=== PATIENT | female | born 1955 | race Caucasian/White ===

== ENCOUNTER → 2017-07-12 | Outpatient (CLI) | payer BC ==
--- NOTE | 2017-07-12 10:52 | US ---
EXAMINATION TYPE: US abdomen complete DATE OF EXAM: 07/12/2017 COMPARISON: None CLINICAL HISTORY: 62 year-old female right Upper Quadrant Pain R10.11. RUQ pain x 3 days, history of cholecystectomy, patient not NPO: ate 4 hours prior to exam. TECHNIQUE: Multiple sonographic images of the abdomen are obtained. FINDINGS: Liver Length: 12.9 cm CBD: 0.5 cm Spleen: 10.6 cm Right Kidney: 9.0 x 4.7 x 5.6 cm Left Kidney: 10.1 x 5.6 x 5.1 cm Pancreas: visualized portions wnl, tail obscured by overlying midline bowel gas Liver: 0.8cm echogenic focus posterior right lobe could represent an old calcified granuloma. Otherw ise, normal size and homogeneous echotexture. Gallbladder: surgically absent Evidence for sonographic Conrad's sign: yes CBD: wnl Spleen: visualized portion wnl, limited by rib shadowing Right Kidney: no hydronephrosis Left Kidney: No hydronephrosis. There is a 3.1 cm midpole simple cyst. Upper IVC: wnl Abd Aorta: Atherosclerotic irregularity. No aneurysm seen. IMPRESSION: 1. Status post cholecystectomy. The chemical equipment repairer reports pain while scanning the gallbladder fossa. Th is likely represents referred pain. 2. The bile duct measures approximately 5 mm which is not abnormally dilated.
== END | disposition home or self-care (01) ==
LOC: RADUSWWP 09:37
PROVIDERS: ATTEND Family Medicine
DX: R10.11 Right upper quadrant pain (principal); Z90.49 Acquired absence of other specified parts of digestive tract
CPT/HCPCS: 76700

== ENCOUNTER 2018-12-17 09:19 | Emergency (ER) | payer BC, OTHER ==
[2018-12-17 09:37] VITALS: RESP 18
[2018-12-17] MEDS ORDERED: SODIUM CHLORIDE 0.9% 1,000 ML IV STA (09:38)
--- NOTE | 2018-12-17 09:54 | ED ---
Abdominal Pain HPI - General Chief Complaint: Abdominal Pain Stated Complaint: left side pain Time Seen by Provider: 12/17/18 09:38 Source: patient, RN notes reviewed Mode of arrival: ambulatory Limitations: no limitations - History of Present Illness Initial Comments: 63-year-old female presents emergency Department with chief complaint of abdominal pain. Patient states started last couple days and left upper quadrant. Patient does have a history of diverticulitis and states pain seems similar. Patient admits that she is currently taking Augmentin though that she recently started for acute sinusitis. Patient reports no fever or chills. She's had slight loose stools but no melena or hematochezia. Denies any vomiting slight nausea. Denies chest pain, shortness breath, flank pain, dysuria or noted hematuria - Related Data Home Medications Medication Instructions Recorded Confirmed Amoxic-Pot Clav 875-125Mg 1 tab PO BID 12/17/18 12/17/18 [Augmentin 875-125] Fluticasone Nasal [place] [Flonase 2 spray EA NOSTRIL DAILY 12/17/18 12/17/18 Nasal [place]] Previous Rx's Medication Instructions Recorded Ciprofloxacin HCl [Cipro] 500 mg PO Q12HR #20 tablet 12/17/18 metroNIDAZOLE [Flagyl] 500 mg PO TID #30 tab 12/17/18 Allergies Allergy/AdvReac Type Severity Reaction Status Date / Time acetaminophen [From Vicodin] Allergy Rash/Hives Verified 12/17/18 11:18 hydrocodone bitartrate Allergy Rash/Hives Verified 12/17/18 11:18 [From Vicodin] latex Allergy Rash/Hives Verified 12/17/18 11:18 codeine AdvReac Nausea Verified 12/17/18 11:18 Review of Systems ROS Statement: Those systems with pertinent positive or pertinent negative responses have been documented in the HPI. ROS Other: All systems not noted in ROS Statement are negative. Past Medical History Past Medical History: No Reported History Additional Past Medical History / Comment(s): Diverticulitis History of Any Multi-Drug Resistant Organisms: None Reported Past Surgical History: Cholecystectomy, Orthopedic Surgery, Tonsillectomy Additional Past Surgical History / Comment(s): d&c, LILLIANA CARPAL TUNNEL Past Anesthesia/Blood Transfusion Reactions: Postoperative Nausea & Vomiting (PONV) Past Psychological History: No Psychological Hx Reported Smoking Status: Current every day smoker Past Alcohol Use History: None Reported Past Drug Use History: None Reported - Past Family History Mother Family Medical History: Cancer Additional Family Medical History / Comment(s): COLON Brother(s) Family Medical History: Cancer Additional Family Medical History / Comment(s): ESOPHAGEAL General Exam Limitations: no limitations General appearance: alert, in no apparent distress Head exam: Present: atraumatic, normocephalic, normal inspection Eye exam: Present: normal appearance, PERRL, EOMI. Absent: scleral icterus, conjunctival injection, periorbital swelling ENT exam: Present: normal exam, normal oropharynx, mucous membranes moist Neck exam: Present: normal inspection, full ROM. Absent: tenderness, meningismus, lymphadenopathy Respiratory exam: Present: normal lung sounds bilaterally. Absent: respiratory distress, wheezes, rales, rhonchi, stridor Cardiovascular Exam: Present: regular rate, normal rhythm, normal heart sounds. Absent: systolic murmur, diastolic murmur, rubs, gallop, clicks GI/Abdominal exam: Present: soft, tenderness (Tenderness to the left upper quadrant), normal bowel sounds. Absent: distended, guarding, rebound, rigid Back exam: Absent: CVA tenderness (R), CVA tenderness (L) Skin exam: Present: warm, dry, intact, normal color. Absent: rash Course Vital Signs 12/17/18 09:35 Temperature 98.4 F Pulse Rate 99 Respiratory 18 Rate Blood Pressure 165/102 O2 Sat by Pulse 98 Oximetry Medical Decision Making - Medical Decision Making 63-year-old female presented emergency from for abdominal discomfort. Patient does have a history of diverticulitis and CT was obtained showing mild uncomplicated diverticulitis. There is no perforation no abscess. Patient does have mild leukocytosis of 14,000 with normal vitals afebrile. Patient is t olerating oral intake. I did offer patient admission for IV antibiotics but she prefers to try at home and ask including Cipro and Flagyl as she currently has been on Augmentin. Patient will follow-up with her PCP and return for any worsening symptoms. - Lab Data Result diagrams: 12/17/18 10:23 12/17/18 10:23 Lab Results 12/17/18 12/17/18 12/17/18 Range/Units 10:23 10:23 10:23 WBC 14.0 H (3.8-10.6) k/uL RBC 5.06 (3.80-5.40) m/uL Hgb 16.3 H (11.4-16.0) gm/dL Hct 47.7 H (34.0-46.0) % MCV 94.4 (80.0-100.0) fL MCH 32.3 (25.0-35.0) pg MCHC 34.2 (31.0-37.0) g/dL RDW 15.0 (11.5-15.5) % Plt Count 258 (150-450) k/uL Neutrophils % 83 % Lymphocytes % 8 % Monocytes % 7 % Eosinophils % 1 % Basophils % 0 % Neutrophils # 11.6 H (1.3-7.7) k/uL Lymphocytes # 1.1 (1.0-4.8) k/uL Monocytes # 1.0 (0-1.0) k/uL Eosinophils # 0.2 (0-0.7) k/uL Basophils # 0.0 (0-0.2) k/uL Sodium 136 L (137-145) mmol/L Potassium 4.1 (3.5-5.1) mmol/L Chloride 102 (98-107) mmol/L Carbon Dioxide 24 (22-30) mmol/L Anion Gap 10 mmol/L BUN 14 (7-17) mg/dL Creatinine 0.78 (0.52-1.04) mg/dL Est GFR (CKD-EPI)AfAm >90 (>60 ml/min/1.73 sqM) Est GFR (CKD-EPI)NonAf 81 (>60 ml/min/1.73 sqM) Glucose 92 (74-99) mg/dL Plasma Lactic Acid Shad 0.8 (0.7-2.0) mmol/L Calcium 10.1 (8.4-10.2) mg/dL Total Bilirubin 1.1 (0.2-1.3) mg/dL AST 22 (14-36) U/L ALT 23 (9-52) U/L Alkaline Phosphatase 60 (38-126) U/L Total Protein 7.7 (6.3-8.2) g/dL Albumin 4.6 (3.5-5.0) g/dL Amylase 46 (30-110) U/L Lipase 63 (23-300) U/L Urine Color Urine Appearance (Clear) Urine pH (5.0-8.0) Ur Specific [place] (1.001-1.035) Urine Protein (Negative) Urine Glucose (UA) (Negative) Urine Ketones (Negative) Urine Blood (Negative) Urine Nitrite (Negative) Urine Bilirubin (Negative) Urine Urobilinogen (<2.0) mg/dL Ur Leukocyte Esterase (Negative) Urine RBC (0-5) /hpf Urine WBC (0-5) /hpf Ur Squamous Epith Cells (0-4) /hpf Urine Mucus (None) /hpf 12/17/18 Range/Units 10:23 WBC (3.8-10.6) k/uL RBC (3.80-5.40) m/uL Hgb (11.4-16.0) gm/dL Hct (34.0-46.0) % MCV (80.0-100.0) fL MCH (25.0-35.0) pg MCHC (31.0-37.0) g/dL RDW (11.5-15.5) % Plt Count (150-450) k/uL Neutrophils % % Lymphocytes % % Monocytes % % Eosinophils % % Basophils % % Neutrophils # (1.3-7.7) k/uL Lymphocytes # (1.0-4.8) k/uL Monocytes # (0-1.0) k/uL Eosinophils # (0-0.7) k/uL Basophils # (0-0.2) k/uL Sodium (137-145) mmol/L Potassium (3.5-5.1) mmol/L Chloride (98-107) mmol/L Carbon Dioxide (22-30) mmol/L Anion Gap mmol/L BUN (7-17) mg/dL Creatinine (0.52-1.04) mg/dL Est GFR (CKD-EPI)AfAm (>60 ml/min/1.73 sqM) Est GFR (CKD-EPI)NonAf (>60 ml/min/1.73 sqM) Glucose (74-99) mg/dL Plasma Lactic Acid Shad (0.7-2.0) mmol/L Calcium (8.4-10.2) mg/dL Total Bilirubin (0.2-1.3) mg/dL AST (14-36) U/L ALT (9-52) U/L Alkaline Phosphatase (38-126) U/L Total Protein (6.3-8.2) g/dL Albumin (3.5-5.0) g/dL Amylase (30-110) U/L Lipase (23-300) U/L Urine Color Light Yellow Urine Appearance Clear (Clear) Urine pH 6.5 (5.0-8.0) Ur Specific [place] 1.007 (1.001-1.035) Urine Protein Negative (Negative) Urine Glucose (UA) Negative (Negative) Urine Ketones Trace H (Negative) Urine Blood Trace H (Negative) Urine Nitrite Negative (Negative) Urine Bilirubin Negative (Negative) Urine Urobilinogen <2.0 (<2.0) mg/dL Ur Leukocyte Esterase Negative (Negative) Urine RBC 2 (0-5) /hpf Urine WBC 1 (0-5) /hpf Ur Squamous Epith Cells 1 (0-4) /hpf Urine Mucus Rare H (None) /hpf Disposition Clinical Impression: Diverticulitis Disposition: HOME SELF-CARE Condition: Stable Instructions (If sedation given, give patient instructions): Diverticulitis (ED), Diverticulitis Diet (ED) Additional Instructions: Please return to the Emergency Department if symptoms worsen or any other concerns. Prescriptions: Ciprofloxacin HCl [Cipro] 500 mg PO Q12HR #20 tablet metroNIDAZOLE [Flagyl] 500 mg PO TID #30 tab Is patient prescribed a controlled substance at d/c from ED?: No Referrals: Jurgen Ware DO [Primary Care Provider] - 1-2 days Time of Disposition: 11:30
[2018-12-17 10:36] LABS: Basophils % (A) 0 %; Eosinophils # (A) 0.2 k/uL (0-0.7); Eosinophils % (A) 1 %; HCT 47.7 % (34.0-46.0); HGB 16.3 gm/dL (11.4-16.0); Lymphocytes # (A) 1.1 k/uL (1.0-4.8); Lymphocytes % (A) 8 %; MCH 32.3 pg (25.0-35.0); MCHC 34.2 g/dL (31.0-37.0); MCV 94.4 fL (80.0-100.0); Mean Platelet Volume 7.4; Monocytes % (A) 7 %; Neutrophils # (A) 11.6 k/uL (1.3-7.7); Neutrophils % (A) 83 %; Platelet Count 258 k/uL (150-450); RBC 5.06 m/uL (3.80-5.40)
[2018-12-17 10:46] LABS: ALT 23 U/L (9-52); AST 22 U/L (14-36); Albumin 4.6 g/dL (3.5-5.0); Alkaline Phosphatase 60 U/L (38-126); Amylase 46 U/L (30-110); Anion Gap 10 mmol/L; Blood Urea Nitrogen 14 mg/dL (7-17); Calcium 10.1 mg/dL (8.4-10.2); Carbon Dioxide 24 mmol/L (22-30); Chloride 102 mmol/L (98-107); Glucose 92 mg/dL (74-99); Lipase 63 U/L (23-300); Potassium 4.1 mmol/L (3.5-5.1); Sodium 136 mmol/L (137-145); Total Bilirubin 1.1 mg/dL (0.2-1.3); Total Protein 7.7 g/dL (6.3-8.2)
[2018-12-17 10:48] LABS: Appearance,Urine Clear (Clear); Bilirubin,Urine Negative (Negative); Blood,Urine Trace (Negative); Color,Urine Light Yellow; Glucose,Urine (UA) Negative (Negative); Ketones,Urine Trace (Negative); Leukocyte Esterase,Urine Negative (Negative); Mucus,Urine Rare /hpf; Nitrite,Urine Negative (Negative); PH, Urine 6.5 (5.0-8.0); Protein,Urine Negative (Negative); RBC,Urine 2 /hpf (0-5); Specific Gravity,Urine 1.007 (1.001-1.035); Squamous Epithelial Cell,Urine 1 /hpf (0-4); Urobilinogen,Urine <2.0 mg/dL (<2.0)
--- NOTE | 2018-12-17 11:05 | CT ---
EXAMINATION TYPE: CT abdomen pelvis w con DATE OF EXAM: 12/17/2018 COMPARISON: 07/23/2013 HISTORY: Left flank pain CT DLP: 572.8 mGycm CONTRAST: CT scan of the abdomen and pelvis is performed without Oral Contrast and with IV Contrast, patient in jected with 100 mL of Isovue 300. FINDINGS: LUNG BASES-: No visible nodule. No infiltrate. LIVER/GB: The gallbladder surgically absent. No space occupying hepatic lesion. Biliary tree is of normal caliber. PANCREAS: No inflammation. No distinct mass. SPLEEN: No splenic enlargement. No lesion seen. ADRENALS: No nodule. No thickening. KIDNEYS/BLADDER: No hydronephrosis. No nephrolithiasis. Simple renal cysts redemonstrated. Urinary bladder grossly unremarkable. BOWEL: There is wall thickening with inflammatory change involving the proximal to mid descending col on as well as a small amount of adjacent fluid compatible with acute diverticulitis. No evidence for perforation or abscess at this time. Mild small bowel ileus suggested. Sigmoid diverticulosis without additional diverticulitis. Nonvisualization of the appendix at this time. GENITAL ORGANS: No gross abnormality. LYMPH NODES: No greater than 1cm abdominal or pelvic lymph nodes are appreciated. AORTA: No significant abnormality. OSSEOUS STRUCTURES: No significant abnormality is seen. OTHER: No significant additional abnormality is seen. IMPRESSION: 1. Uncomplicated acute diverticulitis of the proximal to mid descending colon.
[2018-12-17 11:43] VITALS: BP 147/84; PULSE 78; TEMP 98.9
== END 2018-12-17 11:47 | disposition home or self-care (01) ==
LOC: EC 09:19
DX: K57.32 Diverticulitis of large intestine without perforation or abscess without bleeding (principal); D72.829 Elevated white blood cell count, unspecified; J01.90 Acute sinusitis, unspecified; F17.200 Nicotine dependence, unspecified, uncomplicated; Z88.5 Allergy status to narcotic agent; Z88.6 Allergy status to analgesic agent; Z91.040 Latex allergy status; Z79.51 Long term (current) use of inhaled steroids; Z90.49 Acquired absence of other specified parts of digestive tract; Z80.0 Family history of malignant neoplasm of digestive organs
CPT/HCPCS: 36415; 80053; 82150; 83605; 83690; 85025; 81001; 87040; 74177; 99284; 96360; Q9967

== ENCOUNTER → 2019-04-28 | Outpatient (CLI) | payer MEDICARE ==
--- NOTE | 2019-05-02 09:17 | MM ---
Reason for exam: screening (asymptomatic). Last mammogram was performed 4 years and 9 months ago. History: Patient is postmenopausal and is nulliparous. Physical Findings: A clinical breast exam by your physician is recommended on an annual basis and results should be correlated with mammographic findings. MG 3D Screening Mammo W/Cad Bilateral CC and MLO view(s) were taken. Prior study comparison: July 17, 2014, bilateral MG screening mammo w CAD. The breast tissue is heterogeneously dense. This may lower the sensitivity of mammography. Left lateral asymmetry 5.5cm from nipple also has a possible superior correlate. Central right breast asymmetry 3cm from nipple has a possibly superior correlate on MLO view. ASSESSMENT: Incomplete: need additional imaging evaluation, BI-RAD 0 RECOMMENDATION: Special view mammogram of both breasts. If lesion persists on supplemental views, image directed ultrasound is recommended. [facility] will attempt to contact patient to return for supplemental views and ultrasound if indicated.
== END | disposition home or self-care (01) ==
LOC: RADMAMWWP 09:46
PROVIDERS: ATTEND Family Medicine
DX: Z12.31 Encounter for screening mammogram for malignant neoplasm of breast (principal)
CPT/HCPCS: 77063; 77067

== ENCOUNTER → 2019-05-04 | Outpatient (CLI) | payer MEDICARE ==
--- NOTE | 2019-05-04 10:12 | BD ---
EXAMINATION TYPE: Axial Bone Density DATE OF EXAM: 05/04/2019 COMPARISON: NONE CLINICAL HISTORY: 64 YR OLD FEMALE....ICD-10 CODE: Z78.0 POST JOVANNY , R29.890 LOSS OF HT Height: 64.6 Weight: 135 FRAX RISK QUESTIONS: Current Tobacco Use: YES RISK FACTORS HISTORY OF: Diet low in dairy products/other sources of calcium: YES Postmenopausal woman: YES AT 51 YRS OLD Lost more than 2 inches in height since high school: YES MEDICATIONS: Thyroid Medications: YES, SYNTHROID, FOR 3 MOS Additional Medications: TUMS, VIT D, Additional History: NOTHING ADDITIONAL TO ADD HERE EXAM MEASUREMENTS: Bone mineral densitometry was performed using the [facility]. Bone mineral density as measured about the Lumbar spine is: ----- L1-L4(G/cm2): 1.236 T Score Values are as follows: ----- L1: -1.3 ----- L2: -0.9 ----- L3: 1.7 ----- L4: 1.7 ----- L1-L4: 0.5 Bone mineral density FIRST DEXA AT [facility] Bone mineral density about the R hip (g/cm2): 0.832 Bone mineral density about the L hip (g/cm2): 0.836 T Score values are as follows: -----R Neck: -1.3 -----L Neck: -1.4 -----R Total: -1.4 -----L Total: -1.4 Bone mineral density FIRST DEXA AT [facility] FRAX%s: THERE IS A 8.3% CHANCE FOR A MAJOR OSTEOPOROTIC FX AND A 1.4% FOR HIP.....PROBABILITY FOR F X IN 10 YRS TIME IMPRESSION: Osteoporosis (T Score less than -2.5). There is increased fracture risk and therapy is usually indicated based on age. Re-Screen 1-2 years. NOTE: T-SCORE=SD OF THE YOUNG ADULT MEAN.
== END | disposition home or self-care (01) ==
LOC: RADBDWWP 07:41
PROVIDERS: ATTEND Family Medicine
DX: Z13.820 Encounter for screening for osteoporosis (principal); M81.0 Age-related osteoporosis without current pathological fracture; Z78.0 Asymptomatic menopausal state
CPT/HCPCS: 77080

== ENCOUNTER → 2019-05-11 | Outpatient (CLI) | payer MEDICARE ==
--- NOTE | 2019-05-11 11:50 | MM ---
Reason for exam: additional evaluation requested from abnormal screening. Last mammogram was performed less than 1 month ago. History: Patient is postmenopausal and is nulliparous. Physical Findings: Nurse did not find any significant physical abnormalities on exam. MG 3D Work Up W/Cad LILLIANA Bilateral spot compression CC and LM view(s) were taken. Prior study comparison: April 28, 2019, bilateral MG 3d screening mammo w/cad. July 17, 2014, bilateral MG screening mammo w CAD. The breast tissue is heterogeneously dense. This may lower the sensitivity of mammography. No distinct lesion persists. These results were verbally communicated with the patient and result sheet given to the patient on 05/11/19. ASSESSMENT: Negative, BI-RAD 1 RECOMMENDATION: Return to routine screening mammogram schedule for both breasts.
== END | disposition home or self-care (01) ==
LOC: RADMAMWWP 10:03
PROVIDERS: ATTEND Family Medicine
DX: R92.8 Other abnormal and inconclusive findings on diagnostic imaging of breast (principal)
CPT/HCPCS: 77066; G0279; 77062

== ENCOUNTER → 2021-02-18 | Outpatient (CLI) | payer MEDICARE ==
--- NOTE | 2021-02-18 11:23 | US ---
EXAMINATION TYPE: US thyroid st tissue head/neck DATE OF EXAM: 02/18/2021 COMPARISON: NONE CLINICAL HISTORY: E03.9 Hypothyroidism. Patient on thyroid meds GLAND SIZE: Right Lobe: 5.2 x 2.2 x 2.1 cm, enlarged Overall Parenchyma: heterogenous Left Lobe: 5.3 x 1.7 x 2.0 cm Overall Parenchyma: heterogeneous Isthmus Thickness: 0.2 cm, enlarged NODULES RIGHT: # of nodules measured on right: 0 LEFT: # of nodules measured on left: 0 ISTHMUS: # of nodules measured in the isthmus: 0 Bilateral neck scanned, no evidence of lymphadenopathy. IMPRESSION: Heterogeneous thyroid without focal nodule seen. 2017 ACR TI-RADS LEVEL: TR-RADS 1 - BENIGN: No FNA *Highest TI-RADS level nodule reported
== END | disposition home or self-care (01) ==
LOC: RADUSWWP 10:40
PROVIDERS: ATTEND Family Medicine
DX: E03.9 Hypothyroidism, unspecified (principal)
CPT/HCPCS: 76536

== ENCOUNTER → 2021-03-06 | Outpatient (CLI) | payer MEDICARE ==
--- NOTE | 2021-03-10 15:16 | MM ---
Reason for exam: screening (asymptomatic). Last mammogram was performed 1 year and 10 months ago. History: Patient is postmenopausal and is nulliparous. Physical Findings: A clinical breast exam by your physician is recommended on an annual basis and results should be correlated with mammographic findings. MG 3D Screening Mammo W/Cad Bilateral CC and MLO view(s) were taken. Prior study comparison: May 11, 2019, bilateral MG 3d work up w/cad LILLIANA. April 28, 2019, bilateral MG 3d screening mammo w/cad. The breast tissue is heterogeneously dense. This may lower the sensitivity of mammography. No significant changes when compared with prior studies. ASSESSMENT: Negative, BI-RAD 1 RECOMMENDATION: Routine screening mammogram of both breasts in 1 year.
== END | disposition home or self-care (01) ==
LOC: RADMAMWWP 08:07
PROVIDERS: ATTEND Family Medicine
DX: Z12.31 Encounter for screening mammogram for malignant neoplasm of breast (principal)
CPT/HCPCS: 77063; 77067

== ENCOUNTER → 2021-09-24 | Outpatient (CLI) | payer MEDICARE ==
--- NOTE | 2021-09-24 10:38 | US ---
EXAMINATION TYPE: US thyroid st tissue head/neck DATE OF EXAM: 09/24/2021 COMPARISON: NONE CLINICAL HISTORY: E03.9 Hypothyroidism, unspecified. f/u exam, known hypothyroidism, on meds, no symp toms GLAND SIZE: Right Lobe: 5.5 x 1.8 x 2.6 cm Overall Parenchyma: heterogenous Left Lobe: 4.9 x 1.3 x 2.0 cm Overall Parenchyma: heterogeneous Isthmus Thickness: 0.3 cm NODULES RIGHT: # of nodules measured on right: 0 LEFT: # of nodules measured on left: 0 ISTHMUS: # of nodules measured in the isthmus: 0 Bilateral neck scanned, no evidence of lymphadenopathy. IMPRESSION: Thyroidomegaly and glandular heterogeneity. Otherwise unremarkable study. 2017 ACR TI-RADS LEVEL: *Highest TI-RADS level nodule reported
== END | disposition home or self-care (01) ==
LOC: RADUSWWP 10:06
PROVIDERS: ATTEND Family Medicine
DX: E01.0 Iodine-deficiency related diffuse (endemic) goiter (principal)
CPT/HCPCS: 76536

== ENCOUNTER 2022-02-14 08:14 | Emergency (ER) | payer MEDICARE ==
[2022-02-14] MEDS ORDERED: SODIUM CHLORIDE 0.9% 500 ML 500 ML IV STA (08:29)
[2022-02-14] MEDS ORDERED: PANTOPRAZOLE 40 MG/10 ML VIAL IVP STA (08:29)
[2022-02-14] MEDS ORDERED: fentaNYL (PF) 50 MCG/ML 2 ML AMP IVP STA (08:30)
--- NOTE | 2022-02-14 08:43 | ED ---
General Adult HPI - General Chief complaint: Abdominal Pain Stated complaint: left side abd pain Time Seen by Provider: 02/14/22 08:20 Source: patient, RN notes reviewed, old records reviewed Mode of arrival: ambulatory Limitations: no limitations - History of Present Illness Initial comments: 66-year-old female presents ambulatory to the emergency room with complaints of left upper quadrant abdominal pain that started yesterday while riding lawnmower . She has a history of diverticulitis and states this feels the same. Her last episode was in 2017. She states that she does not have a normal bowel movements sometimes constipation sometimes diarrhea. She did have some nausea and no vomiting. She denies any fevers, chest pain or shortness of breath. She is a previous pack-a-day smoker quit 9 months ago. History of hypothyroidism, hypercholesterolemia, no other medical history. -: days(s) (1) Location: abdomen Radiation: non-radiation Severity scale (1-10): 8 Quality: constant Consistency: constant Associated Symptoms: nausea/vomiting - Related Data Home Medications Medication Instructions Recorded Confirmed Amoxic-Pot Clav 875-125Mg 1 tab PO BID 12/17/18 12/17/18 [Augmentin 875-125] Fluticasone Nasal [place] [Flonase 2 spray EA NOSTRIL DAILY 12/17/18 12/17/18 Nasal [place]] Previous Rx's Medication Instructions Recorded Ciprofloxacin HCl [Cipro] 500 mg PO Q12HR #20 tablet 12/17/18 metroNIDAZOLE [Flagyl] 500 mg PO TID #30 tab 12/17/18 Ciprofloxacin HCl [Cipro] 500 mg PO Q12HR #20 tablet 02/14/22 metroNIDAZOLE [Flagyl] 500 mg PO TID 10 Days #30 tab 02/14/22 Allergies Allergy/AdvReac Type Severity Reaction Status Date / Time acetaminophen [From Vicodin] Allergy Rash/Hives Verified 02/14/22 08:15 hydrocodone bitartrate Allergy Rash/Hives Verified 02/14/22 08:15 [From Vicodin] latex Allergy Rash/Hives Verified 02/14/22 08:15 codeine AdvReac Nausea Verified 02/14/22 08:15 Review of Systems ROS Statement: Those systems with pertinent positive or pertinent negative responses have been documented in the HPI. ROS Other: All systems not noted in ROS Statement are negative. Past Medical History Past Medical History: No Reported History Additional Past Medical History / Comment(s): Diverticulitis History of Any Multi-Drug Resistant Organisms: None Reported Past Surgical History: Cholecystectomy, Orthopedic Surgery, Tonsillectomy Additional Past Surgical History / Comment(s): d&c, LILLIANA CARPAL TUNNEL Past Anesthesia/Blood Transfusion Reactions: Postoperative Nausea & Vomiting (P ONV) Past Psychological History: No Psychological Hx Reported Smoking Status: Former smoker Past Alcohol Use History: None Reported Past Drug Use History: None Reported - Past Family History Mother Family Medical History: Cancer Additional Family Medical History / Comment(s): COLON Brother(s) Family Medical History: Cancer Additional Family Medical History / Comment(s): ESOPHAGEAL General Exam Limitations: no limitations General appearance: alert, in no apparent distress Head exam: Present: atraumatic ENT exam: Present: mucous membranes moist Neck exam: Present: full ROM. Absent: meningismus Respiratory exam: Present: normal lung sounds bilaterally. Absent: respiratory distress, accessory muscle use Cardiovascular Exam: Present: regular rate, normal rhythm GI/Abdominal exam: Present: soft, tenderness (LUQ). Absent: distended, rigid Extremities exam: Present: normal inspection, full ROM, normal capillary refill. Absent: tenderness, pedal edema Neurological exam: Present: alert, oriented X3 Psychiatric exam: Present: normal affect, normal mood Skin exam: Present: warm, dry, intact, normal color. Absent: cyanosis, diaphoretic, petechiae, pallor Course Vital Signs 02/14/22 02/14/22 08:15 10:57 Temperature 98.2 F 98.4 F Pulse Rate 84 67 Respiratory 16 18 Rate Blood Pressure 162/92 121/71 O2 Sat by Pulse 98 96 Oximetry EKG Findings - EKG Results: EKG: sinus rhythm (Ventricular rate 80, OR 0.178, QRS 0.109, QTC 0.401) Medical Decision Making - Medical Decision Making Patient has been afebrile, there is no evidence of leukocytosis. Abdomen is soft and minimally tender. On CT, there is diverticula in the descending colon with some inflammatory change. No evidence of bowel obstruction. Appendix is normal. Findings are consistent with diverticulitis. Patient will be placed on antibiotics and directed to follow up with her primary care doctor. She is agreeable to this plan of care. Case was discussed with Dr. Kowalski. - Lab Data Result diagrams: 02/14/22 08:35 02/14/22 08:35 Lab Results 02/14/22 02/14/22 02/14/22 Range/Units 08:35 08:35 08:35 WBC 9.3 (3.8-10.6) k/uL RBC 4.62 (3.80-5.40) m/uL Hgb 15.1 (11.4-16.0) gm/dL Hct 44.1 (34.0-46.0) % MCV 95.6 (80.0-100.0) fL MCH 32.7 (25.0-35.0) pg MCHC 34.3 (31.0-37.0) g/dL RDW 13.4 (11.5-15.5) % Plt Count 242 (150-450) k/uL MPV 7.2 Neutrophils % 76 % Lymphocytes % 14 % Monocytes % 7 % Eosinophils % 1 % Basophils % 0 % Neutrophils # 7.1 (1.3-7.7) k/uL Lymphocytes # 1.3 (1.0-4.8) k/uL Monocytes # 0.6 (0-1.0) k/uL Eosinophils # 0.1 (0-0.7) k/uL Basophils # 0.0 (0-0.2) k/uL PT 10.7 (9.0-12.0) sec INR 1.0 (<1.2) APTT 28.9 (22.0-30.0) sec Sodium (137-145) mmol/L Potassium (3.5-5.1) mmol/L Chloride (98-107) mmol/L Carbon Dioxide (22-30) mmol/L Anion Gap mmol/L BUN (7-17) mg/dL Creatinine (0.52-1.04) mg/dL Est GFR (CKD-EPI)AfAm (>60 ml/min/1.73 sqM) Est GFR (CKD-EPI)NonAf (>60 ml/min/1.73 sqM) Glucose (74-99) mg/dL Plasma Lactic Acid Shad (0.7-2.0) mmol/L Calcium (8.4-10.2) mg/dL Total Bilirubin (0.2-1.3) mg/dL AST (14-36) U/L ALT (4-34) U/L Alkaline Phosphatase (38-126) U/L Troponin I (0.000-0.034) ng/mL Total Protein (6.3-8.2) g/dL Albumin (3.5-5.0) g/dL Amylase (30-110) U/L Lipase (23-300) U/L Urine Color Light Yellow Urine Appearance Clear (Clear) Urine pH 6.5 (5.0-8.0) Ur Specific [place] 1.001 (1.001-1.035) Urine Protein Negative (Negative) Urine Glucose (UA) Negative (Negative) Urine Ketones Negative (Negative) Urine Blood Negative (Negative) Urine Nitrite Negative (Negative) Urine Bilirubin Negative (Negative) Urine Urobilinogen <2.0 (<2.0) mg/dL Ur Leukocyte Esterase Negative (Negative) 02/14/22 02/14/22 02/14/22 Range/Units 08:35 08:35 08:35 WBC (3.8-10.6) k/uL RBC (3.80-5.40) m/uL Hgb (11.4-16.0) gm/dL Hct (34.0-46.0) % MCV (80.0-100.0) fL MCH (25.0-35.0) pg MCHC (31.0-37.0) g/dL RDW (11.5-15.5) % Plt Count (150-450) k/uL MPV Neutrophils % % Lymphocytes % % Monocytes % % Eosinophils % % Basophils % % Neutrophils # (1.3-7.7) k/uL Lymphocytes # (1.0-4.8) k/uL Monocytes # (0-1.0) k/uL Eosinophils # (0-0.7) k/uL Basophils # (0-0.2) k/uL PT (9.0-12.0) sec INR (<1.2) APTT (22.0-30.0) sec Sodium 135 L (137-145) mmol/L Potassium 4.3 (3.5-5.1) mmol/L Chloride 99 (98-107) mmol/L Carbon Dioxide 27 (22-30) mmol/L Anion Gap 9 mmol/L BUN 11 (7-17) mg/dL Creatinine 0.84 (0.52-1.04) mg/dL Est GFR (CKD-EPI)AfAm 83 (>60 ml/min/1.73 sqM) Est GFR (CKD-EPI)NonAf 72 (>60 ml/min/1.73 sqM) Glucose 108 H (74-99) mg/dL Plasma Lactic Acid Shad 1.0 (0.7-2.0) mmol/L Calcium 9.4 (8.4-10.2) mg/dL Total Bilirubin 1.2 (0.2-1.3) mg/dL AST 36 (14-36) U/L ALT 32 (4-34) U/L Alkaline Phosphatase 73 (38-126) U/L Troponin I <0.012 (0.000-0.034) ng/mL Total Protein 8.3 H (6.3-8.2) g/dL Albumin 4.9 (3.5-5.0) g/dL Amylase 52 (30-110) U/L Lipase 47 (23-300) U/L Urine Color Urine Appearance (Clear) Urine pH (5.0-8.0) Ur Specific [place] (1.001-1.035) Urine Protein (Negative) Urine Glucose (UA) (Negative) Urine Ketones (Negative) Urine Blood (Negative) Urine Nitrite (Negative) Urine Bilirubin (Negative) Urine Urobilinogen (<2.0) mg/dL Ur Leukocyte Esterase (Negative) Disposition Clinical Impression: Diverticulitis Disposition: HOME SELF-CARE Condition: Good Instructions (If sedation given, give patient instructions): Diverticulitis (ED), Diverticulitis Diet (ED) Additional Instructions: Take antibiotics as prescribed and follow up with the primary care doctor next week. Return to the emergency room with any new or concerning symptoms including increased pain, persistent nausea, vomiting or fevers. Prescriptions: Ciprofloxacin HCl [Cipro] 500 mg PO Q12HR #20 tablet metroNIDAZOLE [Flagyl] 500 mg PO TID 10 Days #30 tab Is patient prescribed a controlled substance at d/c from ED?: No Referrals: Jurgen Ware DO [Primary Care Provider] - 1-2 days Time of Disposition: 10:46
[2022-02-14 08:49] LABS: Basophils % (A) 0 %; Eosinophils # (A) 0.1 k/uL (0-0.7); Eosinophils % (A) 1 %; HCT 44.1 % (34.0-46.0); HGB 15.1 gm/dL (11.4-16.0); Lymphocytes # (A) 1.3 k/uL (1.0-4.8); Lymphocytes % (A) 14 %; MCH 32.7 pg (25.0-35.0); MCHC 34.3 g/dL (31.0-37.0); MCV 95.6 fL (80.0-100.0); Mean Platelet Volume 7.2; Monocytes # (A) 0.6 k/uL (0-1.0); Monocytes % (A) 7 %; Neutrophils # (A) 7.1 k/uL (1.3-7.7); Neutrophils % (A) 76 %; Platelet Count 242 k/uL (150-450); RBC 4.62 m/uL (3.80-5.40); RDW 13.4 % (11.5-15.5); WBC 9.3 k/uL (3.8-10.6)
[2022-02-14 08:50] LABS: Appearance,Urine Clear (Clear); Bilirubin,Urine Negative (Negative); Blood,Urine Negative (Negative); Color,Urine Light Yellow; Glucose,Urine (UA) Negative (Negative); Ketones,Urine Negative (Negative); Leukocyte Esterase,Urine Negative (Negative); Nitrite,Urine Negative (Negative); PH, Urine 6.5 (5.0-8.0); Protein,Urine Negative (Negative); Specific Gravity,Urine 1.001 (1.001-1.035); Urobilinogen,Urine <2.0 mg/dL (<2.0)
[2022-02-14 08:57] LABS: Partial Thromboplastin Time 28.9 sec (22.0-30.0); Prothrombin Time 10.7 sec (9.0-12.0)
[2022-02-14 09:01] LABS: Albumin 4.9 g/dL (3.5-5.0); Calcium 9.4 mg/dL (8.4-10.2); Potassium 4.3 mmol/L (3.5-5.1); Total Bilirubin 1.2 mg/dL (0.2-1.3); Total Protein 8.3 g/dL (6.3-8.2)
--- NOTE | 2022-02-14 10:30 | CT ---
EXAMINATION TYPE: CT abdomen pelvis w con DATE OF EXAM: 02/14/2022 COMPARISON: CT 12/17/2018 HISTORY: Lower pelvic pain, left lower quadrant CT DLP: 824.1 mGycm Automated exposure control for dose reduction was used. TECHNIQUE: Helical acquisition of images from the lung bases through the pelvis have been completed. CONTRAST: Performed without Oral Contrast and with IV Contrast, patient injected with 100 mL of Isovue 300. FINDINGS: LUNG BASES: Basilar atelectatic changes are suspected AORTA: No significant abnormality is appreciated. LIVER/GB: Calcification is present along the superior aspect of the liver posteriorly, nonaggressive, patient is post cholecystectomy, some mild prominence the biliary ducts is likely due to post cholec ystectomy change PANCREAS: No significant abnormality is seen. SPLEEN: No significant abnormality is seen. ADRENALS: No significant abnormality is seen. KIDNEYS: Exophytic cyst present along the anterior aspect of the superior margin of the left kidney l ikely simple measures 3.5 cm REPRODUCTIVE ORGANS: No significant abnormality is seen BOWEL: Along the descending colon there is a diverticulum present with some local inflammatory vargas e, thickening of the local fascia and:, No evident abscess formation. The appendix is normal. No frandy l obstruction. FREE AIR: No Free Air visible. ASCITES: None visible. PELVIC ADENOPATHY: None visualized. RETROPERITONEAL ADENOPATHY: No Retroperitoneal Adenopathy visible. URINARY BLADDER: No significant abnormality is seen. OSSEOUS STRUCTURES: Degenerative disc changes, facet arthropathy, spinal curvature are noted IMPRESSION: FINDINGS ARE CONSISTENT WITH DIVERTICULITIS, FOLLOW-UP SUGGESTED
[2022-02-14] MEDS ORDERED: CIPROFLOXACIN HCL 500 MG TAB PO STA (10:46)
[2022-02-14] MEDS ORDERED: metroNIDAZOLE 500 MG TAB PO STA (10:46)
[2022-02-14 11:01] VITALS: BP 121/71; PULSE 67; RESP 18; TEMP 98.4
== END 2022-02-14 11:01 | disposition home or self-care (01) ==
LOC: EC 08:14
DX: K57.32 Diverticulitis of large intestine without perforation or abscess without bleeding (principal); Z87.891 Personal history of nicotine dependence; Z88.6 Allergy status to analgesic agent; Z88.5 Allergy status to narcotic agent; Z91.040 Latex allergy status
CPT/HCPCS: 36415; 80053; 82150; 83605; 83690; 84484; 85025; 85610; 85730; 81003; 74177; 99284; 96374; 96375; 96361; J3010; C9113; Q9967; 93005

== ENCOUNTER → 2023-09-02 | Outpatient (CLI) | payer MEDICARE ==
[2023-09-02 15:41] LABS: HGB 14.5 g/dL (12.0-15.0); MCH 30.4 pg (27.0-32.0); MCV 92.2 FL (80.0-97.0); Mean Platelet Volume 9.6 FL (9.5-12.2); NRBC Per 100 WBC 0 X 10*3/uL (0.00-0.01); Platelet Count 239 X 10*3/uL (140-440); RBC 4.77 X 10*6/uL (4.10-5.20); WBC 8.37 X 10*3/uL (4.50-10.00)
[2023-09-02 16:11] LABS: Blood Urea Nitrogen 8.8 mg/dL (9.0-27.0); Carbon Dioxide 27.1 mmol/L (21.6-31.8); Chloride 102 mmol/L (96-109); Potassium 4.5 mmol/L (3.5-5.5); Sodium 139 mmol/L (135-145)
== END | disposition home or self-care (01) ==
LOC: LABWHC1 09:51
PROVIDERS: ATTEND Internal Medicine
DX: Z01.812 Encounter for preprocedural laboratory examination (principal); R06.02 Shortness of breath
CPT/HCPCS: 36415; 80051; 82565; 84520; 85027

== ENCOUNTER 2023-09-30 10:01 | Day surgery (SDC) | payer MEDICARE ==
[2023-08-27 14:00] VITALS: BMI 27.1
[~2023-09-30 10:01] MED LIST: ALPRAZolam 0.25 MG TAB PO PRN; ALPRAZolam 0.5 MG TAB PO PRN; ASPIRIN 325 MG TAB PO ONE; HEPARIN SODIUM,PORCINE (1 ML) 2,500 UNIT in SODIUM CHLORIDE 0.9% 250 ML IRRIGATION PRN; HEPARIN SODIUM,PORCINE 10,000 UNIT in SODIUM CHLORIDE 0.9% 1,000 ML IRRIGATION PRN; NITROGLYCERIN SL TABS 0.4 MG TAB SUBLINGUAL PRN; SODIUM CHLORIDE 0.9% 1,000 ML in EMPTY BAG 1 BAG IV SCH
[2023-09-30 10:42] VITALS: RESP 18; TEMP 98.4
[2023-09-30] MEDS ORDERED: fentaNYL (PF) 50 MCG/ML 2 ML AMP ONE (13:00)
[2023-09-30] MEDS ORDERED: VERAPAMIL 2.5 MG/ML 2 ML AMP ONE (13:00)
[2023-09-30] MEDS ORDERED: LIDOCAINE 1% INJ 10MG/ML (20 ML MDV) ONE (13:00)
[2023-09-30] MEDS ORDERED: MIDAZOLAM 2 MG/2 ML VIAL IVP ONE ×2 (13:59→14:02)
[2023-09-30] MEDS ORDERED: fentaNYL (PF) 50 MCG/ML 2 ML AMP IVP ONE ×3 (14:01→14:02)
[2023-09-30] MEDS ORDERED: LIDOCAINE 1% INJ 10MG/ML (20 ML MDV) SQ ONE (14:01)
[2023-09-30] MEDS ORDERED: VERAPAMIL SYRINGE (5 MG/10 ML) INTRAARTER ONE (14:01)
[2023-09-30] MEDS ORDERED: HEPARIN SODIUM 1,000 UN/ML (10ML VL) IVP ONE (14:02)
[2023-09-30] MEDS ORDERED: IOPAMIDOL-370 100ML BTL INJ ONE (14:07)
--- NOTE | 2023-09-30 14:17 | P.CARDCATH ---
Description of Procedure: PROCEDURES PERFORMED: Left heart catheterization, bilateral coronary angiography, ultrasound guided arterial access INDICATION: Abnormal stress test CONSENT:I have discussed the risks, benefits and alternative therapies for the above-mentioned procedure and for both sedation/analgesia as well as necessary blood product administration, if indicated, as they pertain to this patient. The patient has indicated understanding and acceptance of the risks and procedures discussed. PROCEDURE: After the risks, benefits and alternatives of the above mentioned procedure explained in detail with the patient, informed consent was obtained. Patient was taken to the catheterization lab and prepped and draped in usual fashion. Ultrasound guidance was used to assess for arterial access. 1% lidocaine was used to anesthetize the right radial artery. A 6-Bangladeshi sheath was placed in the right radial artery using modified Seldinger technique and ultrasound guidance. Left coronary angiography was performed with a 5-Bangladeshi JL 3.5 catheter and right coronary angiography was performed with a 5-Bangladeshi FR5 catheter in various views. A 5-Bangladeshi FR5 catheter was inserted into the left ventricle and pressure measurements were obtained. The right radial sheath was removed and a TR band was placed with hemostasis achieved. The patient to lerated the procedure well. Patient was transported back to the post catheterization holding area in stable condition. Conscious Sedation: Patient was monitored under the direct supervision of myself for conscious sedation using Versed and fentanyl for a total duration of 10 minutes HEMODYNAMICS: Aorta: 132/72 LV: 131/2, LVEDP 4 SELECTIVE CORONARY ARTERIOGRAPHY: LEFT MAIN: The left main is a large caliber vessel which trifurcates into the LAD, ramus and circumflex. There is no significant stenosis. LEFT ANTERIOR DESCENDING CORONARY ARTERY: LAD is a large caliber vessel which wraps around to the apex. There is proximal LAD 30% stenosis and mid LAD 10- 20% stenosis RAMUS INTERMEDIUS: Ramus is moderate caliber without significant stenosis LEFT CIRCUMFLEX CORONARY ARTERY: Left circumflex is a moderate caliber vessel without significant stenosis. RIGHT CORONARY ARTERY: The right coronary artery is a large caliber vessel which gives off a PDA and PLV branch and is the dominant vessel. There are mild luminal irregularities. FINAL IMPRESSION: 1. Mild CAD as described above with up to 30% stenosis 2. Low normal left sided filling pressures PLAN: 1. Aggressive risk factor modification per most recent ACC/AHA guidelines. 2. Follow-up in the office in 1-2 weeks.
[2023-09-30] MEDS ORDERED: SODIUM CHLORIDE 0.9% 1,000 ML IV SCH (14:30)
[2023-09-30 16:51] VITALS: BP 149/75; PULSE 65
== END 2023-09-30 17:17 | disposition home or self-care (01) ==
LOC: CATHCVL 10:01 → 6NMEDSUR 14:10 → CATHCVL 17:17
PROVIDERS: ATTEND Internal Medicine
DX: R94.39 Abnormal result of other cardiovascular function study (principal); E78.5 Hyperlipidemia, unspecified; Z87.891 Personal history of nicotine dependence; Z79.899 Other long term (current) drug therapy; Z88.5 Allergy status to narcotic agent; Z88.8 Allergy status to other drugs, medicaments and biological substances; Z88.6 Allergy status to analgesic agent
CPT/HCPCS: 93458; 76937; 99152; C1769; C1894; J2250; J2001; J3010; J1644; Q9967

== ENCOUNTER → 2023-11-17 | Outpatient (CLI) | payer MEDICARE ==
--- NOTE | 2023-11-19 07:50 | MR ---
EXAMINATION TYPE: MR knee LT wo con DATE OF EXAM: 11/17/2023 COMPARISON: 11/05/2015 HISTORY: Left knee pain and swelling, Hx lt knee surgery meniscus repair 2016 TECHNIQUE: Multiplanar, multisequence imaging of the left knee is performed without IV contrast. FINDINGS: There is a small bone contusion of the posterior medial femoral condyle. There are mild osteoarthritic changes of the medial and lateral compartments of the knee with mild th inning of the articular cartilage and mild hypertrophic spurring of the margins. 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 The cruciate and collateral ligaments are intact. The quadriceps and patellar tendons are intact. There is recurrent oblique tear to the posterior horn and body of the medial meniscus. The lateral meniscus is intact. IMPRESSION: 1. Recurrent tear of the body and posterior horn of the medial meniscus. 2. Moderate joint effusion and Fontana's cyst. 3. No ligamentous injury.
== END | disposition home or self-care (01) ==
LOC: RADMRIMAIN 10:45
PROVIDERS: ATTEND Orthopaedic Surgery
DX: M23.322 Other meniscus derangements, posterior horn of medial meniscus, left knee (principal); M25.462 Effusion, left knee; M71.22 Synovial cyst of popliteal space [Baker], left knee; Z98.890 Other specified postprocedural states

== ENCOUNTER → 2023-12-06 | Outpatient (CLI) | payer MEDICARE ==
--- NOTE | 2023-12-06 15:19 | BD ---
EXAMINATION TYPE: Axial Bone Density DATE OF EXAM: 12/06/2023 CLINICAL HISTORY: 68 years old Female. ICD-10 CODE: M81.0 OSTEOPOROSIS Height: 64in Weight: 164lb FRAX RISK QUESTIONS: Family History (Parent hip fracture): yes Secondary Osteoporosis: RISK FACTORS HISTORY OF: MEDICATIONS: Thyroid Medications: Which medication: Synthroid How Long: almost 30 years EXAM MEASUREMENTS: Bone mineral densitometry was performed using the [employer] System. Bone mineral density as measured about the Lumbar spine is: ----- L1-L4(G/cm2): 1.327 T Score Values are as follows: ----- L1: -0.2 ----- L2: 0.2 ----- L3: 2.0 ----- L4: 2.5 ----- L1-L4: 1.2 Z Score Values are as follows: ----- L1: 1.1 ----- L2: 1.5 ----- L3: 3.3 ----- L4: 3.9 ----- L1-L4: 2.6 Bone mineral density has: Increased 7.4% since study of: 05-04-19 Bone mineral density about the R hip (g/cm2): 0.795 Bone mineral density about the L hip (g/cm2): 0.868 T Score values are as follows: -----R Neck: -2.1 -----L Neck: -1.2 -----R Total: -1.7 -----L Total: -1.1 Z Score values are as follows: -----R Neck: -0.6 -----L Neck: 0.3 -----R Total: -0.5 -----L Total: 0.1 Bone mineral density has: Decreased -0.4% since study of: 05-04-19 FRAX%s: The graph provided illustrates a 19.6% chance for a major osteoporotic fx and a 5% chance for the hips probability for fx in 10 years time. IMPRESSION: Osteopenia (T Score between -2.5 and -1). There is slightly increased risk of fracture and the patient may be considered for treatment. Re-Screen 2-5 years. NOTE: T-SCORE=SD OF THE YOUNG ADULT MEAN.
--- NOTE | 2023-12-07 09:42 | MM ---
Reason for Exam: Screening (asymptomatic). Last mammogram was performed 2 year(s) and 9 month(s) ago. Patient History: Menarche at age 16. Patient has no children. Postmenopausal. Risk Values: Christine 5 year model risk: 1.7%. NCI Lifetime model risk: 5.4%. Prior Study Comparison: 04/28/2019 Bilateral Screening Mammogram, [facility]. 05/11/2019 Bilateral Diagnostic Mammogram, [facility]. 03/06/2021 Bilateral Screening Mammogram, [facility]. Tissue Density: The breasts are heterogeneously dense, which may obscure small masses. Findings: Analyzed By CAD. There is no suspicious group of microcalcifications or new suspicious mass in either breast. Overall Assessment: Benign, BI-RAD 2 Management: Screening Mammogram of both breasts in 1 year. . Patient should continue monthly self-breast exams. A clinical breast exam by your physician is recommended on an annual basis. This exam should not preclude additional follow-up of suspicious palpable abnormalities. Note on Christnie scores and lifetime risk: 1. A Christine score greater than 3% is considered moderate risk. If this is the case, consider specialist referral to assess eligibility for a risk reducing agent. 2. If overall lifetime risk for the development of breast cancer is 20% or higher, the patient may qualify for future screening with alternating mammogram and breast MRI. Electronically signed and approved by: Duy Collado M.D. Radiologis
== END | disposition home or self-care (01) ==
LOC: RADMAMWWP 12:58
PROVIDERS: ATTEND Family Medicine
DX: Z12.31 Encounter for screening mammogram for malignant neoplasm of breast (principal); M85.89 Other specified disorders of bone density and structure, multiple sites; M81.0 Age-related osteoporosis without current pathological fracture; Z78.0 Asymptomatic menopausal state
CPT/HCPCS: 77063; 77067; 77080

== ENCOUNTER 2023-12-23 13:41 | Day surgery (SDC) | payer MEDICARE ==
[2023-12-21 12:45] VITALS: BMI 25.8
--- NOTE | 2023-12-23 00:20 | HP ---
HISTORY AND PHYSICAL DATE OF SURGERY: 12/23/2023. HISTORY OF PRESENT ILLNESS: Neetu Romero is a 68-year-old patient seen with progressive left knee pain. We discussed options regarding treatment. She elected to proceed with left knee arthroscopy. Consent was obtained. The preoperative medical clearance was provided by Dr. Ware. PAST MEDICAL HISTORY: Hypertension, hyperlipidemia, hypothyroidism. PAST SURGICAL HISTORY: Tubal ligation, carpal tunnel surgery, cholecystectomy, cardiac catheterization, knee arthroscopy. DAILY MEDICATIONS: 1. Levothyroxine. 2. Lipitor. 3. Metoprolol. 4. Protonix. ALLERGIES: Vicodin and codeine. SOCIAL HISTORY: She denies current tobacco use. PHYSICAL EVALUATION OF THE LEFT KNEE: Range of motion is -7/8 to 110 degrees. Mild to moderate effusion. Tenderness, medial joint line. Positive medial Libertad's. Ligaments stable. Hip rotation without pain. Distal neurovascular exam is intact. IMAGING STUDIES: Left knee radiographs reveal mild osteoarthritis. Left knee MRI revealed medial meniscal tear, moderate effusion, and a Fontana cyst. IMPRESSION: 1. Internal derangement of left knee with medial meniscal tear. 2. Hypertension. 3. Hyperlipidemia. 4. Hypothyroidism. PLAN: Left knee arthroscopy with partial medial meniscectomy and debridement. MMODL / IJN: [id number] /
[~2023-12-23 13:41] MED LIST changes: -ALPRAZolam 0.25 MG TAB PO PRN; -ALPRAZolam 0.5 MG TAB PO PRN; -ASPIRIN 325 MG TAB PO ONE; -HEPARIN SODIUM,PORCINE (1 ML) 2,500 UNIT in SODIUM CHLORIDE 0.9% 250 ML IRRIGATION PRN; -HEPARIN SODIUM,PORCINE 10,000 UNIT in SODIUM CHLORIDE 0.9% 1,000 ML IRRIGATION PRN; +LIDOCAINE 1% (10MG/ML) FOR IV START INTRADERMA PRN; -NITROGLYCERIN SL TABS 0.4 MG TAB SUBLINGUAL PRN; -SODIUM CHLORIDE 0.9% 1,000 ML in EMPTY BAG 1 BAG IV SCH; +droPERidol 5 MG/2 ML VIAL IVP ONE; +fentaNYL (PF) 50 MCG/ML 2 ML AMP IV PRN
[2023-12-23] MEDS: LACTATED RINGERS 1,000 ML IV SCH (13:59)
[2023-12-23] MEDS: ONDANSETRON 4 MG/2 ML VIAL IVP ONE (14:10)
[2023-12-23] MEDS: DEXAMETHASONE SOD PHOSPHATE 4 MG/ML 1 ML VIAL IVP ONE (14:11)
[2023-12-23] MEDS ORDERED: MIDAZOLAM 2 MG/2 ML VIAL ONE (14:43)
[2023-12-23] MEDS ORDERED: PROPOFOL 10 MG/ML 20 ML VIAL IV ONE (14:43)
[2023-12-23] MEDS ORDERED: LIDOCAINE 1% INJ 10MG/ML (20 ML MDV) ONE (14:43)
[2023-12-23] MEDS ORDERED: fentaNYL (PF) 50 MCG/ML 2 ML AMP ONE (14:43)
[2023-12-23] MEDS ORDERED: KETOROLAC 15 MG/ML 1 ML VIAL ONE (14:43)
[2023-12-23] MEDS: BUPIVACAINE (PF) 0.25% 30 ML VIAL MISCELLANE ONE ×2 (15:07→15:19)
--- NOTE | 2023-12-23 15:34 | P.OP ---
Date of Procedure: 12/23/23 Preoperative Diagnosis: Internal derangement left knee Postoperative Diagnosis: 1. Tear medial and lateral meniscus left knee 2. Reactive synovitis medial, lateral and suprapatellar compartments left knee Procedure(s) Performed: 1. Arthroscopic partial medial and lateral meniscectomy left knee 2. Arthroscopic partial synovectomy medial, lateral and suprapatellar compartments left knee Anesthesia: GETA, local Surgeon: Delta Figueroa Estimated Blood Loss (ml): 7 Pathology: none sent Condition: stable Disposition: PACU Indications for Procedure: 68-year-old patient seen with progressive left knee pain. After having treatment options discussed, she elected to proceed with arthroscopy. Operative Findings: See description of procedure Description of Procedure: Patient was taken to the operative suite. Patient underwent a general anesthetic by the department of anesthesia. Patient was given preoperative antibiotics. The left lower extremity was placed in a well-padded arthroscopic leg wahl. The left leg was prepped and draped in the normal sterile orthopedic fashion. A lateral parapatellar and suprapatellar incision was made. Trochars were inserted. Arthroscopy was initiated. Suprapatellar pouch re vealed diffuse thick reactive synovitis. The patellofemoral joint appeared to articular congruently. There was grade I chondromalacia of the patella without significant tearing. The scope was guided into the medial gutter. No loose bodies or plica were identified. The scope was then guided into the medial compartment. A medial parapatellar incision was made. Trocar inserted followed by probe. There was a complex tear involving the posterior horn and mid body of the medial meniscus. There were grade II chondromalacia changes of the tibial plateau without tears. There was grade I chondromalacia of the medial femoral condyle without tears. There was thick reactive synovitis anteriorly. I performed a partial medial meniscectomy getting down to stable meniscal tissue. I performed a partial synovectomy decompressing the reactive synovitis. The residual meniscus was stable. There was good decompression of the synovitis. Scope and probe were then guided into the intercondylar notch. Cruciates were identified, probed and found to be stable. The scope and probe were then guided into lateral compartment. There was a radial tear involving the mid body of the lateral meniscus. There was no significant chondromalacia. There was thick reactive synovitis anteriorly. I performed a partial lateral meniscectomy getting down to stable meniscal tissue. I performed a partial synovectomy decompressing the reactive synovitis. The residual meniscus was stable. There was good decompression of the synovitis. The scope was in guided back into the suprapatellar compartment. I introduced a motorized shaver into the suprapatellar compartment. I debrided some piecemeal fragments of meniscus that I encountered. I performed a partial synovectomy. The shaver was now removed. There was good decompression of the synovitis. I took 1 more look around the entire knee, no residual debris. Instruments were now removed from the joint. The joint was infiltrated with .25% Marcaine. Steri-Strips were applied to the portal sites. Sterile dressings were applied. The patient was placed into a LEONARD hose. No tourniquet was utilized. The patient was awakened, transferred to a bed and taken to recovery stable satisfactory condition.
[2023-12-23] MEDS: HYDROmorphone 0.5 MG/0.5 ML SYRINGE IVP ONE (15:44)
[2023-12-23 16:12] VITALS: TEMP 96.4
[2023-12-23] MEDS ORDERED: traMADol 50 MG TAB ONE (16:25)
[2023-12-23] MEDS: traMADol 50 MG TAB PO ONE (16:26)
[2023-12-23 17:31] VITALS: BP 134/81; PULSE 53; RESP 16
== END 2023-12-23 17:08 | disposition home or self-care (01) ==
LOC: OR 13:41
PROVIDERS: ATTEND Orthopaedic Surgery
DX: S83.282A Other tear of lateral meniscus, current injury, left knee, initial encounter (principal); S83.242A Other tear of medial meniscus, current injury, left knee, initial encounter; M65.862 Other synovitis and tenosynovitis, left lower leg; I10 Essential (primary) hypertension; E78.5 Hyperlipidemia, unspecified; E03.9 Hypothyroidism, unspecified; I25.10 Atherosclerotic heart disease of native coronary artery without angina pectoris; K21.9 Gastro-esophageal reflux disease without esophagitis; Z98.51 Tubal ligation status; Z90.49 Acquired absence of other specified parts of digestive tract; Z79.899 Other long term (current) drug therapy; Z88.5 Allergy status to narcotic agent; Z87.891 Personal history of nicotine dependence; Z79.890 Hormone replacement therapy; X58.XXXA Exposure to other specified factors, initial encounter
CPT/HCPCS: 29880; J2250; J1100; J0690; J2405; J2001; J3010; J1885; J2704; J1170; J0665

== ENCOUNTER 2024-01-19 08:14 | Day surgery (SDC) | payer MEDICARE ==
[2024-01-14 14:22] VITALS: BMI 25.7
[~2024-01-19 08:14] MED LIST changes: -LIDOCAINE 1% (10MG/ML) FOR IV START INTRADERMA PRN
[2024-01-19] MEDS: LACTATED RINGERS 1,000 ML IV SCH (09:10)
[2024-01-19] MEDS: LIDOCAINE 1% (10MG/ML) FOR IV START INTRADERMA PRN (09:10)
[2024-01-19] MEDS: DEXAMETHASONE SOD PHOSPHATE 4 MG/ML 1 ML VIAL IV ONE (09:18)
[2024-01-19] MEDS: FAMOTIDINE 20 MG/2 ML VIAL IV PRN (09:18)
[2024-01-19] MEDS: ONDANSETRON 4 MG/2 ML VIAL IVP ONE (09:18)
[2024-01-19] MEDS ORDERED: fentaNYL (PF) 50 MCG/ML 2 ML AMP ONE (09:41)
[2024-01-19] MEDS ORDERED: LIDOCAINE 1% INJ 10MG/ML (20 ML MDV) ONE (09:41)
[2024-01-19] MEDS ORDERED: MIDAZOLAM 2 MG/2 ML VIAL ONE (09:41)
[2024-01-19] MEDS ORDERED: PROPOFOL 10 MG/ML 20 ML VIAL IV ONE (09:41)
[2024-01-19] MEDS ORDERED: SUCCINYLCHOLINE CHLORIDE 200 MG/10 ML VIAL IV ONE (09:41)
[2024-01-19] MEDS ORDERED: DEXAMETHASONE SOD PHOSPHATE 10 MG/ML 1 ML VIAL ONE (09:41)
--- NOTE | 2024-01-19 10:29 | P.OP ---
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 She was noted to have a cystic lesion of the left vocal cord on flexible laryngoscopy Operative Findings: approximately 9 mm smooth rounded cystic lesion arising from the left laryngeal ventricle this had thick mucoid fluid within it Description of Procedure: patient brought in the operative suite and placed in a supine position. Patient underwent induction of general anesthesia with oral endotracheal intubation without difficulty. Patient prepped and draped in usual aseptic fashion. Tooth guard was placed and direct laryngoscopy was performed with systematic evaluation of the base tongue vallecula both piriform sinuses post cricoid area and endolarynx. With the laryngoscope in position to visualize the larynx the suspension apparatus was placed and the Zeiss microscope brought into position to visualize the vocal cords. The lesion itself was grasped with a cup forcep and was biopsied. There was thick mucoid fluid which was aspirated. The remainder of the lesion was removed with cup forceps and voucher clerk blade. Good hemostasis was noted spontaneously. The laryngoscope and tooth guard were removed. The patient allowed to emerge from general anesthesia having tolerated procedure well was extubated in the operating suite and transferred to postop recovery area in satisfactory condition
[2024-01-19 10:41] VITALS: TEMP 96.9
[2024-01-19 11:37] VITALS: RESP 16
[2024-01-19 11:39] VITALS: BP 148/85; PULSE 69
== END 2024-01-19 11:56 | disposition home or self-care (01) ==
LOC: OR 08:14
PROVIDERS: ATTEND Otolaryngology
DX: J38.2 Nodules of vocal cords (principal); E78.5 Hyperlipidemia, unspecified; E03.9 Hypothyroidism, unspecified; K21.9 Gastro-esophageal reflux disease without esophagitis; M41.9 Scoliosis, unspecified; Z79.890 Hormone replacement therapy; Z79.899 Other long term (current) drug therapy; Z88.5 Allergy status to narcotic agent; Z88.8 Allergy status to other drugs, medicaments and biological substances; Z91.040 Latex allergy status
CPT/HCPCS: 31541; 88305; J2250; J0330; J1100 ×2; J2405; J2001; J3010; J3490; J2704

== ENCOUNTER 2025-02-07 05:38 | Day surgery (SDC) | payer MEDICARE ==
[2025-02-07] MEDS ORDERED: fentaNYL (PF) 50 MCG/ML 2 ML AMP IVP PRN (06:25)
[2025-02-07] MEDS ORDERED: LIDOCAINE 1% (10MG/ML) FOR IV START INTRADERMA PRN (06:25)
[2025-02-07] MEDS ORDERED: MIDAZOLAM 2 MG/2 ML VIAL IV PRN (06:25)
[2025-02-07] MEDS: IV FLUID CONTINUATION 1,000 ML IV ONE ×2 (06:48→06:55)
[2025-02-07] MEDS: LACTATED RINGERS 1,000 ML IV SCH (06:59)
[2025-02-07] MEDS: ONDANSETRON 4 MG/2 ML VIAL IVP ONE (06:59)
[2025-02-07] MEDS: DEXAMETHASONE SOD PHOSPHATE 4 MG/ML 1 ML VIAL IV ONE (07:00)
[2025-02-07] MEDS ORDERED: ePHEDrine 50 MG/ML 1 ML VIAL ONE (07:45)
[2025-02-07] MEDS ORDERED: MIDAZOLAM 2 MG/2 ML VIAL ONE (07:45)
[2025-02-07] MEDS ORDERED: GLYCOPYRROLATE 0.2 MG/ML 2 ML VIAL ONE (07:45)
[2025-02-07] MEDS: ceFAZolin 1,000 MG in SODIUM CHLORIDE 0.9% IRRIGATIO 1,000 ML IRRIGATION PRN ×2 (07:45→10:01)
[2025-02-07] MEDS ORDERED: ROCURONIUM 10 MG/ML (5 ML VIAL) IV ONE (07:45)
[2025-02-07] MEDS ORDERED: HYDROmorphone (PF) 1 MG/ML ONE (07:45)
[2025-02-07] MEDS ORDERED: fentaNYL (PF) 50 MCG/ML 2 ML AMP ONE (07:45)
[2025-02-07] MEDS ORDERED: PROPOFOL 10 MG/ML 20 ML VIAL IV ONE (07:45)
[2025-02-07] MEDS ORDERED: LIDOCAINE 4% LTA KIT (4 ML) TOPICAL ONE (07:45)
[2025-02-07] MEDS ORDERED: diphenhydrAMINE 50 MG/ML 1 ML VIAL ONE (07:45)
[2025-02-07] MEDS: ceFAZolin 2 GM in DEXTROSE 5% IN WATER 50 ML IVPB PRN (07:45)
[2025-02-07] MEDS ORDERED: SUCCINYLCHOLINE CHLORIDE 200 MG/10 ML VIAL IV ONE (07:45)
[2025-02-07] MEDS ORDERED: PHENYLEPHRINE 10 MG/ML VIAL ONE (07:45)
[2025-02-07] MEDS ORDERED: TRANEXAMIC 1,000 MG/100ML-NACL PREMIX BAG ONE (07:45)
[2025-02-07] MEDS ORDERED: ONDANSETRON 4 MG/2 ML VIAL ONE (07:45)
[2025-02-07] MEDS: THROMBIN (BOVINE) 5,000 UNIT VIAL TOPICAL ONE (08:19)
[2025-02-07] MEDS: BUPIVACAINE (PF) 0.5% 30 ML VIAL SQ ONE (08:19)
[2025-02-07] MEDS: LIDOCAINE 2%-EPI 1:100,000 20 ML VIAL SQ ONE (08:19)
[2025-02-07] MEDS: LACTATED RINGERS 1,000 ML IV ONE ×3 (09:29→13:01)
[2025-02-07] MEDS: ceFAZolin 1,000 MG in SODIUM CHLORIDE 0.9% 1,000 ML IRRIGATION ONE (12:11)
[2025-02-07] MEDS: SODIUM CHLORIDE 0.9% 50 ML with ceFAZolin 2,000 MG IV ONE (12:34)
[2025-02-07] MEDS ORDERED: diazePAM 5 MG TAB PO PRN (13:41)
[2025-02-07] MEDS ORDERED: HYDROmorphone 0.5 MG/0.5 ML SYRINGE IVP PRN (13:41)
[2025-02-07] MEDS ORDERED: BENZOCAINE/MENTHOL LOZENG 1 EACH LOZENGE MUCOUS MEM PRN (13:41)
[2025-02-07] MEDS ORDERED: MAGNESIUM HYDROXIDE 2,400 MG/30 ML CUP PO PRN (13:41)
[2025-02-07] MEDS ORDERED: HYDROmorphone 1 MG/ML 1 ML SYRINGE IVP PRN (13:41)
[2025-02-07] MEDS ORDERED: ONDANSETRON 4 MG/2 ML VIAL IVP PRN (13:41)
--- NOTE | 2025-02-07 13:56 | P.OP ---
Date of Procedure: 02/07/25 Preoperative Diagnosis: Severe spinal stenosis L1-2 L2-3 L3-4 L4-5, degenerative scoliosis, spondylolisthesis, degenerative disc disease, lower extremity radiculopathy, neurogenic claudication, facet arthrosis, low back pain Postoperative Diagnosis: Same Anesthesia: GETA Pathology: none sent Condition: stable Disposition: PACU Description of Procedure: BRIEF OPERATIVE NOTE Preoperative Diagnosis: Severe spinal stenosis L1-2 L2-3 L3-4 L4-5, degenerative scoliosis, spondylolisthesis, facet arthrosis, lower extremity colopathy, neurogenic claudication, low back pain Postoperative Diagnosis: Same Procedure: Open posterior lateral decompression and fusion L1-L2 3 L3-4 L4-5 Laminectomy decompression with wide bilateral foraminotomies L1-2, L2-3, L3-4, L4-5 Placement of bilateral pedicle screws L1-L2 L3-L4-L[address] Ticketfly image guidance system intraoperatively for placement of hardware L1-L2 L3-L4-L5 Use of fluoroscopic guidance were placement of hardware Transforaminal lumbar interbody fusion with placement of interbody cage at L2-3, L3-4, L4-5 for a 360 degree fusion at each level Harvesting of local autogenous bone graft Harvesting of bone marrow cells for use to supplement bone graft Use of intraoperative neuromonitoring Surgeon: Dr. Howard Archival Studies Professor: Herberth ARANGO who is present throughout the entire the case ivonne harrell during positioning, dissection, exposure, visualization, and all crucial elements of the case as well as closure. Anesthesia: General anesthesia Estimated blood loss: Approximately 600 cc with 125 came back through [employer] Complications: None apparent Components implanted: K2M [place] pedicle screw system with use of 10 screws measuring 6.5 or 7.5 mm x 45 mm with 2 rods measuring 130 mm and 1 cross- link with Martha interbody titanium cages x 3 with DBX fiber bone boats to supplement local autogenous bone graft Disposition: To recovery room in good stable condition. OPERATIVE INDICATIONS The patient is a 69-year-old female who has longstanding history of low back pain and lower extremity pain as well. She has been having worsening symptoms over the past year and has been going through dedicated conservative treatment for many years for her back and her lower extremities. She was found to have evidence of severe spinal stenosis at multiple levels particularly at L1-2 L2-3 L3-4 and L4-5. She had degenerative scoliosis through her lumbar spine with spondylolisthesis. She had severe end-stage facet arthrosis with disc degeneration as well. Her findings correlated well with her low back and lower extremity symptoms. She was not having any further benefit with dedicated conservative treatment and was having worsening of her symptoms and significant debility. We talked about multiple treatment options ranging from continue with conservative care and the possibly of surgical intervention. We discussed the risks of surgery including but not limited to the risk of bleeding risk of infection risk of need for further surgery risk of decrease or loss of motion loss of function malunion nonunion hardware failure nerve damage paralysis heart attack blindness needs and the fact that the surgery may not alleviate her symptoms was explained. She understood all of these things we answered her questions best of our ability and she like to proceed with surgical intervention. OPERATIVE SUMMARY After discussing all the risks, patient alternatives and benefits at length, the patient elected to proceed with surgical intervention, signed informed consent, and presented for their procedure. The patient was seen and examined in the preoperative holding area and the surgical site was marked. The patient was given antibiotics and brought to the operating room. The patient was sedated and intubated by anesthesia in standard fashion. The patient was positioned on to the operating room table in a prone position on the appropriate frame which was well-padded and well molded. We were careful to pad any bony prominences and pressure points. We were careful to maintain the patient's cervical spine and good neutral alignment and position throughout. The patient was prepped and draped in a normal standard fashion. An appropriate timeout and keystone protocol performed. We were able to proceed with the surgery. The local wound area was infiltrated with local anesthetic. An incision was made at the midline longitudinally over the appropriate levels. Dissection was taken down subcutaneously to the level of the fascia which was split midline. Dissection was taken over the lamina bilaterally over the facet joints and to the transverse processes. Intraoperative x-ray was taken which showed a marker at the appropriate level at L2. With the appropriate level positively confirmed, we were able to proceed with placement of the pedicle holes and screws. The patient had all their twitches back. At this point we established a intraoperative sensor with a bony fixation at the spinous process and then draped appropriately and did a intraoperative OneRoof CT navigation system. The spin was completed and were able to use the information and a guidance in order to place the screws bilaterally at L1 L2-L3-L4 and L5. This was checked also with fluoroscopic guidance and with direct visualization. The wound was copiously irrigated and suctioned dry as had been done periodically throughout the case. Screw holes were established similarly at each level. I was able to establish the Jamshidi needle at the appropriate starting point and malleted in position with CT guidance and direct visualization. A wire was inserted into the vertebral body appropriately. At one of the levels of L3 on the right we took a bone aspiration for graft supplementation. With the wires intact at L1 L2-L3-L4 and L5 bilaterally imaging with C-arm was again brought in to establish excellent alignment position of all the wires. With his intact we are then able to place screws over each of the wires bilaterally at L1-L2 L3-L4-L5 with direct visualization and with C-arm guidance. The screws had good alignment good position with excellent bony purchase. The transverse process or sacral ala was decorticated with a high-speed bur. I was able to use these holes to place the appropriate size screw and good alignment and good position with good bony purchase. When the screws were inserted there were stimulated, and found to have no stimulation at 20 mA. We did another spin post screw placement and showed X alignment of all the screws at L1-L5 I was able to turn my attention to the decompression decompression was performed with a combination of rongeurs, curettes, Kerrison rongeurs and a ball-tip feeler. She had severe stenosis at each of the levels most severely at L2-3 and L3-4. There is severe distortion as well and we will to get excellent decompression with the laminectomy and foraminotomy at nc as well as the discectomy at L2-3 L3-4 and L4-5. Each of these contributed to the decompression. All of the bone that was removed was stripped and morcellized for use as autogenous bone graft later in the case. I was able to obtain good central decompression as well as wide bilateral foraminal decompression. There is no evidence of dural tear or leak. Good hemostasis was maintained. The wound was irrigated and suctioned dry. I performed a complete facetectomy at the appropriate level at L4-5 and then at L3-4 and then at L2-3 similarly. All bone that was removed was saved for local autogenous bone grafting. I was able to gain access to the disc space at the appropriate level/levels. Good hemostasis was maintained. I was able to protect the neurologic structures. A discectomy was performed. The discectomy was completed to provide further decompression. This provided further decompression. I was also able to perform complete discectomy and endplate preparation with a combination of pituitary curettes, rasps and scrapers. With the interbody space prepared, I was able to do appropriate sizing. The appropriate size cage was chosen. The wound was irrigated and suctioned dry. The interbody space was packed with local autogenous bone graft and a small portion of bone graft substitute, as was the cage itself. Protecting the soft tissue structures, I was able place the cage in good alignment and good position with good fit and fill. There is no evidence of extrusion of the graft material nor protrusion of the interbody device. The wound was irrigated and suctioned dry. With the hardware intact, intraoperative x-ray was again taken which showed good alignment and position of the hardware at the appropriate levels. I was able to get good episcopal of her alignment from her scoliosis as well as the listhesis from L1 L5. The cast was checked and found have excellent stability throughout. There is no evidence of dural tear or leak. A cross-link was placed from right to right as well. We were then able to measure, contour and place the rods and appropriate hardware bilaterally. I was able to place capcrews, tighten them down, and shear them off appropriately. The sheared portion was counted and accounted for. With this intact I was able to place the local otitis bone graft with additional bone graft enhancer as necessary into the posterior lateral gutters bilaterally. With the bone graft intact, a stable construct, and good decompression at the appropriate levels, we were able to proceed with closure. Good hemostasis was maintained. There is no evidence of dural tear or leak. The fascia was closed for a watertight closure. The subcutaneous tissue was closed over a superficial drain. The subcuticular tissue was closed with absorbable suture. The wound was cleaned and dried and dressed with the appropriate dressing. The drapes were broken down. The patient was gently rolled back onto their hospital bed being careful to maintain their cervical spine and good neutral alignment and position. They were woken up by anesthesia, extubated, and brought to the recovery room in good stable condition. The patient will be admitted to the hospital for appropriate postoperative care, medical management and monitoring. We will continue to follow them closely about the postoperative course.
--- NOTE | 2025-02-07 13:58 | FL ---
EXAMINATION TYPE: FL guidance operating room, XR lumbar spine 2 or 3V DATE OF EXAM: 02/07/2025 1:38 PM COMPARISON: Pre Operative Images if available both CT/MRI or plain film CLINICAL INDICATION: Female, 69 years old with history of SPINAL STENOSIS; TECHNIQUE: FL guidance operating room, XR lumbar spine 2 or 3V, multiple fluoroscopic images provided for procedure. DAP: 932 mGym2 Gycm2 uGym2 cGycm2 or equivalent. FINDINGS: Fluoroscopic images during internal fixation/arthroplasty demonstrate hardware in appropriate positio n. Hardware appears intact. No immediate complication identified. IMPRESSION: 1. No evidence for intraoperative complication. 2. Please see the operative/procedural note for further details. [facility], , 02/07/2025 1:56 PM
[2025-02-07] MEDS: HYDROmorphone 0.5 MG/0.5 ML SYRINGE IVP PRN (14:16)
[2025-02-07] MEDS: ACETAMINOPHEN TAB 500 MG TAB PO SCH (17:16)
[2025-02-07] MEDS: SODIUM CHLORIDE 0.9% 1,000 ML IV SCH (17:16)
[2025-02-07] MEDS: ceFAZolin 2 GM in DEXTROSE 5% IN WATER 50 ML IVPB SCH (17:16)
--- NOTE | 2025-02-07 17:31 | P.CONS ---
History of Present Illness - Reason for Consult Consult date: 02/07/25 - History of Present Illness 69 year old F with PMH of HTN, HLD, Hypothyroid, GERD, urinary urgency presents to [facility] for elective surgery. She underwent open posterior lateral decompression and fusion L1-L2 3 L3-4 L4-[address] Howard[address] [facility] Physicians consulted for medical management of this patient. Patient reports 7.5-8/10 severity pain at this time. No bowel movement not passing gas. General: no distress, appears at stated age Derm: warm, dry Head: atraumatic, normocephalic, symmetric Mouth: no lip lesion, mucus membranes moist Cardiovascular: S1 S2 reg. No murmur. Lungs: Decreased BS bilaterally, no accessory muscle use Ext: no gross muscle atrophy, no edema, no contractures Neuro: No focal neurologic deficits. Psych: Alert and oriented. Based on my assessment of this patient, this patient meets a high complexity level of care. HTN: Metoprolol 12.5 mg PO QD. Imdur 30 mg PO QD. HLD: Lipitor 20 mg PO QD. Hypothyroid: Synthroid 100 mcg PO QD. GERD: Protonix 40 mg PO QD. Urinary urgency: Tolterodine 4 mg PO QD. Open posterior lateral decompression and fusion L1-L2 3 L3-4 L4-5 POD 0 management per Orthopedic Sx CODE STATUS: FULL CODE DVT Prophylaxis: SCD GI Prophylaxis: Protonix PO Designated medical POA if patient is not able to make medical decisions for themselves: I have reviewed the following retirement consultant notes: Operative note. I have reviewed the results of the following tests: I have ordered the following tests: Agree with CBC and BMP. I have discussed the care of this patient with the following independent historian: WILBERT. I have independently interpreted the following test below: I have discussed the management of this patient with the following physician: Past Medical History Past Medical History: GERD/Reflux, Hyperlipidemia, Musculoskeletal Disorder, Osteoarthritis (OA), Pneumonia, Thyroid Disorder Additional Past Medical History / Comment(s): Scoliosis, cannot lie flat for very long, needs to move around frequently. Diverticulitis. Hx Pneumonia mid s. urinary urgency History of Any Multi-Drug Resistant Organisms: None Reported Past Surgical History: Cholecystectomy, Heart Catheterization, Orthopedic Surgery, Tonsillectomy Additional Past Surgical History / Comment(s): D&C, BILATERAL CARPAL TUNNEL, colonoscopy. Past Anesthesia/Blood Transfusion Reactions: Postoperative Nausea & Vomiting (PONV) Additional Past Anesthesia/Blood Transfusion Reaction / Comm: PONV only once w/gallbladder surg. years ago Smoking Status: Former smoker - Past Family History Mother Family Medical History: Cancer Additional Family Medical History / Comment(s): COLON CANCER. Brother(s) Family Medical History: Cancer Additional Family Medical History / Comment(s): ESOPHAGEALCANCER. 2 brothers had cancer. Medications and Allergies Home Medications Medication Instructions Recorded Confirmed Type Cholecalciferol [Vitamin D3 (25 25 mcg PO DAILY 10/29/22 02/06/25 History Mcg = 1000 Iu)] Levothyroxine Sodium [Synthroid] 100 mcg PO QAM 10/29/22 02/06/25 History Bells-3/Dha/Epa/Fish Oil [Fish Oil 2 each PO DAILY 10/29/22 02/06/25 History 1,000 mg Softgel] Pantoprazole [Protonix] 40 mg PO QAM 10/29/22 02/06/25 History Atorvastatin [Lipitor] 20 mg PO QAM 08/27/23 02/06/25 History Isosorbide Mononitrate [Isosorbide 30 mg PO QAM 08/27/23 02/06/25 History Mononitrate ER] Metoprolol Succinate (ER) [Toprol 12.5 mg PO QAM 08/27/23 02/06/25 History Xl] Multivitamin/Iron/Folic Acid 1 each PO DAILY 08/27/23 02/06/25 History [Centrum Women Tablet] Calcium Carbonate [Calcium] 600 mg PO DAILY 02/06/25 02/06/25 History Elderberry Fruit [Elderberry] 350 mg PO DAILY 02/06/25 02/06/25 History Tolterodine Tartrate [Tolterodine 4 mg PO DAILY 02/06/25 02/06/25 History Tartrate ER] Allergies Allergy/AdvReac Type Severity Reaction Status Date / Time hydrocodone bitartrate Allergy Rash/Hives, Verified 02/07/25 06:21 [From Vicodin] facial swelling latex Allergy Rash/Hives Verified 02/07/25 06:21 codeine AdvReac Nausea Verified 02/07/25 06:21 Physical Exam Vitals: Vital Signs Temp Pulse Pulse Resp BP BP Pulse Ox 02/07/25 17:01 77 103/65 98 02/07/25 16:46 79 103/68 94 L 02/07/25 16:31 82 101/65 96 02/07/25 16:16 82 105/70 96 02/07/25 15:37 97.9 F 81 16 106/68 97 02/07/25 15:06 85 16 104/71 98 02/07/25 14:52 81 14 106/65 99 02/07/25 14:37 85 16 107/70 97 02/07/25 14:22 80 16 108/69 96 02/07/25 14:07 81 14 113/88 97 02/07/25 13:52 98.1 F 91 11 L 104/70 95 02/07/25 06:19 98.8 F 78 18 127/84 95 Intake and Output 02/07/25 02/07/25 02/07/25 06:59 14:59 22:59 Intake Total 200 3603 Output Total 1075 Balance 200 2528 Intake: IV 200 3603 Output: Urine 475 Estimated Blood Loss 600 Other: Weight 79.1 kg
[2025-02-07] MEDS: traMADol 50 MG TAB PO PRN (21:50)
[2025-02-08] MEDS: PANTOPRAZOLE 40 MG TABLET PO SCH (06:56)
[2025-02-08] MEDS: LEVOTHYROXINE 100 MCG TAB PO SCH (06:56)
[2025-02-08 08:17] LABS: Basophils # (A) 0.03 X 10*3/uL (0.00-0.10); Basophils % (A) 0.4 %; Eosinophils # (A) 0.02 X 10*3/uL (0.04-0.35); Eosinophils % (A) 0.3 %; HGB 9.3 g/dL (12.0-15.0); Lymphocytes # (A) 1.08 X 10*3/uL (0.90-5.00); Lymphocytes % (A) 13.8 %; MCH 31.1 pg (27.0-32.0); MCHC 33.2 g/dL (32.0-37.0); MCV 93.6 FL (80.0-97.0); Mean Platelet Volume 9.8 FL (9.5-12.2); Monocytes # (A) 0.75 X 10*3/uL (0.20-1.00); Monocytes % (A) 9.6 %; NRBC Per 100 WBC 0 X 10*3/uL (0.00-0.01); Neutrophils # (A) 5.91 X 10*3/uL (1.80-7.70); Neutrophils % (A) 75.4 %; Platelet Count 176 X 10*3/uL (140-440); RBC 2.99 X 10*6/uL (4.10-5.20); RDW 13.1 % (11.5-14.5); WBC 7.83 X 10*3/uL (4.50-10.00)
[2025-02-08 08:19] LABS: Blood Urea Nitrogen 7.6 mg/dL (9.0-27.0); Calcium 8.1 mg/dL (8.7-10.3); Carbon Dioxide 24.5 mmol/L (21.6-31.8); Chloride 100 mmol/L (96-109); Glucose 107 mg/dL (70-110); Potassium 3.5 mmol/L (3.5-5.5); Sodium 133 mmol/L (135-145)
[2025-02-08] MEDS ORDERED: NON FORMULARY DRUG (Omega-3/Dha/Epa/Fish Oil [Fish Oil 1,000 Mg Softgel] 1 EACH Capsule) PO SCH (09:00)
[2025-02-08] MEDS: MULTIVITAMINS, THERA 1 EACH TAB PO SCH (09:04)
[2025-02-08] MEDS: CHOLECALCIFEROL 25 MCG (1000 IU) TABLET PO SCH (09:04)
[2025-02-08] MEDS: SENNOSIDES-DOCUSATE SODIUM 1 EACH TAB PO SCH (09:04)
[2025-02-08] MEDS: ATORVASTATIN 20 MG TAB PO SCH (09:04)
[2025-02-08] MEDS: METOPROLOL SUCCINATE (ER) 25 MG TAB.ER.24H PO SCH (09:04)
[2025-02-08] MEDS: CALCIUM CARBONATE 500 MG CHEWABLE PO SCH (09:04)
[2025-02-08] MEDS: ISOSORBIDE MONONITRATE ER 30 MG TAB.ER.24H PO SCH (09:04)
[2025-02-08] MEDS: OXYBUTYNIN XL 5 MG TAB.ER.24 PO SCH (09:04)
--- NOTE | 2025-02-08 10:18 | P.PN ---
Progress Note - Text Progress Note Date: 02/08/25 Postoperative day #1 Patient is seen and examined today at bedside. The patient has some pain around the surgical site as expected. Pain is being controlled with medication. Patient is doing quite nicely tonight. She has been up out of bed and walked into the hallway already. She says she has been passing gas. She denies any nausea or vomiting. The pain is primarily in her lower. She feels her legs are doing better already. Physical Exam Afebrile with stable vital signs Abdomen is soft nontender. Chest has good excursion deep and space expiration The incision site is clean dry and intact. No erythema there is no purulence. The drain is intact with minimal drainage Extremities have not had neurologic change from prior to surgery. She has sustained dorsiflexion plantarflexion EHL intact Calves and thighs were soft nontender without evidence of DVT. Assessment/Plan Postoperative day #1 status post open decompression and fusion L1-L5 for her spinal stenosis with degenerative scoliosis and spondylolisthesis and lower extremity radiculopathy Patient is progressing quite nicely so far from the surgery. She is already moving nicely has been able to get out of bed on her own with a walker for limited distance. We will continue to increase the patient's mobilization with therapy. Will discontinue Medel today Is going to be somewhat difficult to control her pain with oral medications due to her allergies but she is doing adequately S-spine. We will continue pain control with oral or IV medications. We'll continue to follow patient closely. Possibly home on Wednesday
[2025-02-08] MEDS ORDERED: SENNOSIDES-DOCUSATE SODIUM 1 EACH TAB PO PRN (10:40)
--- NOTE | 2025-02-08 10:44 | P.PN ---
Progress Note - Text Progress Note Date: 02/08/25 Orthopedic Spine: History of present illness: Patient is a pleasant 69-year-old female who is seen and examined at the bedside following open L1-2, L2-3, L3-4, and L4-5 posterior lateral decompression and fusion with L2-3, L3-4, and L4-5 transforaminal lumbar interbody fusion performed yesterday. Patient states they are doing well post operatively. She has been able to ambulate the hallways with physical therapy. She is currently sitting in a bedside chair. She feels her surgical site pain is well- controlled. She is not currently complaining of lower extremity radiculopathy. Her Medel catheter remains intact. This will be discontinued today. Her postoperative drain remains intact. 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 Will continue to keep this intact until at least tomorrow. We may plan to discontinue the drain tomorrow depending on blood loss. Currently does not complain of nausea, vomiting, fever, or chills. Patient states pain has been adequately controlled. Patient is eating without difficulty. She is being seen by medicine for her other medical diagnoses postoperatively. Patient does admit to bowel movements at home once every 3 days on average. She will continue with Senokot-S and will increase to twice daily. Physical Exam Lumbar Fusion: Status post surgical day number 1 Patient is awake, alert, and oriented 3 Vital signs stable Good chest excursion with deep inspiration and expiration Abdomen soft nontender Dorsiflexion, plantarflexion, and extensor hallucis longus positive sustained bilaterally No signs or symptoms of DVT; no calf pain; pneumatic cuffs intact bilateral lower extremities Optifoam dressings are clean, dry, and intact over the lumbar spine and right iliac crest; no erythema, purulence, or signs of infection Postoperative drain remains intact Neurovascularly intact bilaterally lower extremities Medel catheter intact Assessment: Status post open L1-2, L2-3, L3-4, and L4-5 posterior lateral decompression and fusion with L2-3, L3-4, and L4-5 transforaminal lumbar interbody fusion Low back pain L1-2, L2-3, L3-4, and L4-5 severe lumbar spinal stenosis Lumbar degenerative scoliosis Lumbar spondylolisthesis Lumbar degenerative disc disease Lower extremity radiculopathy Neurogenic claudication Lumbar facet arthrosis Hyperlipidemia Hypothyroidism Plan: 1. Ambulate as tolerated; work with Physical Therapy to increase mobilization 2. Continue pain control with IV and oral medications; will plan to begin weaning the patient off of IV narcotic medication in anticipation for discharge home in the next 1-2 days. She does have some difficulty with narcotic medications. Her pain is currently being controlled with IV Dilaudid, oral tramadol, cyclobenzaprine, and Valium. At the time of discharge, medications will be sent to her regular pharmacy per request of the patient. 3. Dressings to remain intact with Optifoam; patient may shower with dressings intact 4. Her Medel catheter remains intact. This will be discontinued today. 5. Her postoperative drain remains intact. 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 Will continue to keep this intact until at least tomorrow. We may plan to discontinue the drain tomorrow depending on blood loss. 6. Patient does admit to bowel movements at home once every 3 days on average. She will continue with Senokot-S and will increase to twice daily. 7. Medical management can continue to manage patient for patient's other medical diagnoses 8. We will continue to follow the patient closely; depending on the patient's progress, we may plan for discharge home as early as 02/10/2025 9. Patient can follow-up with Herberth Vasquez PA-C or Dr. Sergio Howard at [facility] in 2-3 weeks following discharge
--- NOTE | 2025-02-08 13:11 | P.PN ---
Subjective Progress Note Date: 02/08/25 69 year old F with PMH of HTN, HLD, Hypothyroid, GERD, urinary urgency presents to [facility] for elective surgery. She underwent open posterior lateral decompression and fusion L1-L2 3 L3-4 L4-[address] Howard[address] [facility] consulted for medical management of this patient. 02/08 Patient was seen and examined. Doing well. Pain is 6/10. Plans to DC Medel catheter today. CBC and BMP significant for RBC 2.99, Hg 9.3, Hct 28, Na 133, BUN 7.6, BUN/Cr 9.5, Ca 8.1. General: no distress, appears at stated age Derm: warm, dry Head: atraumatic, normocephalic, symmetric Mouth: no lip lesion, mucus membranes moist Cardiovascular: S1 S2 reg. No murmur. Lungs: Decreased BS bilaterally, no accessory muscle use Ext: no gross muscle atrophy, no edema, no contractures Neuro: No focal neurologic deficits. Psych: Alert and oriented. Based on my assessment of this patient, this patient meets a high complexity lev el of care. Acute blood loss anemia: Expected result of surgery. Monitor Hg. Transfuse if Hg < 7. HTN: Metoprolol 12.5 mg PO QD. Imdur 30 mg PO QD. HLD: Lipitor 20 mg PO QD. Hypothyroid: Synthroid 100 mcg PO QD. GERD: Protonix 40 mg PO QD. Urinary urgency: Tolterodine 4 mg PO QD. Open posterior lateral decompression and fusion L1-L2 3 L3-4 L4-5 POD 1 management per Orthopedic Sx CODE STATUS: FULL CODE DVT Prophylaxis: SCD GI Prophylaxis: Protonix PO Designated medical POA if patient is not able to make medical decisions for themselves: I have reviewed the following ruby on rails consultant notes: Ortho note. I have reviewed the results of the following tests: CBC and BMP. I have ordered the following tests: CBC in the AM. I have discussed the care of this patient with the following independent histo david: Family at bedside. I have independently interpreted the following test below: I have discussed the management of this patient with the following physician: Objective - Vital Signs Vital signs: Vital Signs Temp 97.9 F 02/08/25 13:07 Pulse 90 02/08/25 13:07 Resp 15 02/08/25 13:07 BP 114/70 02/08/25 13:07 Pulse Ox 99 06/12/25 13:07 FiO2 Intake & Output 02/07/25 02/08/25 02/08/25 18:59 06:59 18:59 Intake Total 3603 Output Total 1125 1200 1160 Balance 2478 -1200 -1160 Weight 79.1 kg Intake: IV 3603 Output: Drainage 50 160 Medial Back 50 160 Urine 475 1200 1000 Uretheral (Medel) 1000 Estimated Blood Loss 600 Other: Voiding Method Indwelling Catheter Indwelling Catheter - Labs CBC & Chem 7: 02/08/25 02:52 02/08/25 02:52 Labs: Abnormal Lab Results - Last 24 Hours (Table) 02/08/25 02/08/25 Range/Units 02:52 02:52 RBC 2.99 L (4.10-5.20) X 10*6/uL Hgb 9.3 L (12.0-15.0) g/dL Hct 28.0 L (37.2-46.3) % Eosinophils # 0.02 L (0.04-0.35) X 10*3/uL Sodium 133 L (135-145) mmol/L BUN 7.6 L (9.0-27.0) mg/dL BUN/Creatinine Ratio 9.50 L (12.00-20.00) Ratio Calcium 8.1 L (8.7-10.3) mg/dL
[2025-02-08] MEDS: CYCLOBENZAPRINE 10 MG TAB PO PRN (21:51)
[2025-02-09 05:15] LABS: HCT 26.2 % (37.2-46.3); HGB 9.4 g/dL (12.0-15.0); MCH 32.1 pg (27.0-32.0); MCHC 35.9 g/dL (32.0-37.0); MCV 89.4 fL (80.0-97.0); Mean Platelet Volume 9.7 fL (9.5-12.2); Platelet Count 164 10*3/uL (140-440); RBC 2.93 10*6/uL (4.10-5.20); RDW 12.1 % (11.5-14.5); WBC 10.26 10*3/uL (4.50-10.00)
--- NOTE | 2025-02-09 08:54 | P.PN ---
Progress Note - Text Progress Note Date: 02/09/25 Orthopedic Spine: History of present illness: Patient is a pleasant 69-year-old female who is seen and examined at the bedside following open L1-2, L2-3, L3-4, and L4-5 posterior lateral decompression and fusion with L2-3, L3-4, and L4-5 transforaminal lumbar interbody fusion performed Wednesday. Patient states they are doing well post operatively and she continues to improve. She has been able to ambulate the hallways with physical therapy. She is unsteady and is requiring the use of a walker. She states she has a walker for home. She is currently sitting in a bedside chair. She feels her surgical site pain is well-controlled. She is not currently complaining of lower extremity radiculopathy. Her Medel catheter was discontinued yesterday. She is voiding without difficulty. Her Hemovac drain only had 15 cc of blood loss over the past shift. This was discontinued at the bedside today. Currently does not complain of nausea, vomiting, fever, or chills. Patient states pain has been adequately controlled. Patient is eating without diffi culty. She is being seen by medicine for her other medical diagnoses postoperatively. Patient does admit to bowel movements at home once every 3 days on average. She will continue with Senokot-S and will increase to twice daily. Patient states she does have stool softener medication at home. Physical Exam Lumbar Fusion: Status post surgical day number 2 Patient is awake, alert, and oriented 3 Vital signs stable Good chest excursion with deep inspiration and expiration Abdomen soft nontender Dorsiflexion, plantarflexion, and extensor hallucis longus positive sustained bilaterally No signs or symptoms of DVT; no calf pain; pneumatic cuffs intact bilateral lower extremities Optifoam dressings are clean, dry, and intact over the lumbar spine; no erythema, purulence, or signs of infection No significant erythema, bruising, or swelling around the surgical site of the lumbar spine Hemovac drain is removed at the bedside with dressing and nonstick Tegaderm reapplied Neurovascularly intact bilaterally lower extremities Assessment: Status post open L1-2, L2-3, L3-4, and L4-5 posterior lateral decompression and fusion with L2-3, L3-4, and L4-5 transforaminal lumbar interbody fusion Low back pain L1-2, L2-3, L3-4, and L4-5 severe lumbar spinal stenosis Lumbar degenerative scoliosis Lumbar spondylolisthesis Lumbar degenerative disc disease Lower extremity radiculopathy Neurogenic claudication Lumbar facet arthrosis Hyperlipidemia Hypothyroidism Plan: 1. Ambulate as tolerated; work with Physical Therapy to increase mobilization. She may continue to utilize a walker to aid in ambulation as needed. She has a walker for home use. 2. Continue pain control with IV and oral medications; will plan to begin we aning the patient off of IV narcotic medication in anticipation for discharge home hopefully tomorrow, 02/10/2025. She does have some difficulty with narcotic medications. Her pain is currently being controlled with IV Dilaudid, oral tramadol, cyclobenzaprine, and Valium. At the time of discharge, medications will be sent to her regular pharmacy per request of the patient. MAPS has been reviewed today, 02/09/2025, with an Overall Overdose Risk Score of 80. An "Opiod Start Talking" Form has been signed and placed in the patient's chart. A prescription has been written for tramadol 50 mg, 1-2 tabs, every 6 hours as needed for acute pain, dispense #28. Prescription written for baclofen 10 mg, 1 tab, 3 times daily, as needed for muscle spasm, dispense #60. Prescriptions are sent to the patient's pharmacy per request of the patient. Patient will continue with stool softener at home following discharge. Patient states she has this medication at home 3. Dressings to remain intact with Optifoam; patient may shower with dressings intact; Hemovac drain has been discontinued with dressing and Tegaderm reapplied 4. Patient does admit to bowel movements at home once every 3 days on average. She will continue with Senokot-S twice daily during her admission. She does not have any abdominal pain. 5. Medical management can continue to manage patient for patient's other medical diagnoses 6. We will continue to follow the patient closely; depending on the patient's progress, we may plan for discharge home as early as 02/10/2025 7. Patient can follow-up with Herberth Vasquez PA-C or Dr. Sergio Howard at [facility] in 2-3 weeks following discharge
--- NOTE | 2025-02-09 13:55 | P.PN ---
Subjective Progress Note Date: 02/09/25 69 year old F with PMH of HTN, HLD, Hypothyroid, GERD, urinary urgency presents to [facility] for elective surgery. She underwent open posterior lateral decompression and fusion L1-L2 3 L3-4 L4-[address] Howard. [facility] consulted for medical management of this patient. 02/08 Patient was seen and examined. Doing well. Pain is 6/10. Plans to DC Medel catheter today. CBC and BMP significant for RBC 2.99, Hg 9.3, Hct 28, Na 133, BUN 7.6, BUN/Cr 9.5, Ca 8.1. 02/09 Patient was seen and examined. Doing well. Voiding freely. No bowel movement but pasing gas. CBC significant for WBC 10.26, RBC 2.93, Hg 9.4, Hct 26.2. General: no distress, appears at stated age Derm: warm, dry Head: atraumatic, normocephalic, symmetric Mouth: no lip lesion, mucus membranes moist Cardiovascular: good distal perfusion in all 4 extremities Lungs: breathing comfortable, no accessory muscle use Ext: no gross muscle atrophy, no edema, no contractures Neuro: No focal neurologic deficits. Psych: Alert and oriented. Based on my assessment of this patient, this patient meets a high complexity level of care. Acute blood loss anemia: Expected result of surgery. Monitor Hg. Transfuse if Hg < 7. Leukocytosis: Likely reactive. No signs of active infection. Monitor fever profile. HTN: Metoprolol 12.5 mg PO QD. Imdur 30 mg PO QD. HLD: Lipitor 20 mg PO QD. Hypothyroid: Synthroid 100 mcg PO QD. GERD: Protonix 40 mg PO QD. Urinary urgency: Tolterodine 4 mg PO QD. Open posterior lateral decompression and fusion L1-L2 3 L3-4 L4-5 POD 2 management per Orthopedic Sx Medically stable. Plans for hopeful discharge tomorrow. CODE STATUS: FULL CODE DVT Prophylaxis: SCD GI Prophylaxis: Protonix PO Designated medical POA if patient is not able to make medical decisions for themselves: I have reviewed the following product consultant notes: Ortho note. I have reviewed the results of the following tests: CBC I have ordered the following tests: I have discussed the care of this patient with the following independent historian: WILBERT. I have independently interpreted the following test below: I have discussed the management of this patient with the following physician: Objective - Vital Signs Vital signs: Vital Signs Temp 97.8 F 02/09/25 07:40 Pulse 91 02/09/25 07:40 Resp 17 02/09/25 07:40 BP 147/85 02/09/25 07:40 Pulse Ox 93 L 02/09/25 07:40 FiO2 Intake & Output 02/08/25 02/09/25 02/09/25 18:59 06:59 18:59 Intake Total 180 Output Total 1310 15 Balance -1310 -15 180 Intake: Oral 180 Output: Drainage 310 15 Medial Back 310 15 Urine 1000 Uretheral (Medel) 1000 Other: Voiding Method Indwelling Catheter # Voids 3 2 - Labs CBC & Chem 7: 02/09/25 04:31 02/08/25 02:52 Labs: Abnormal Lab Results - Last 24 Hours (Table) 02/09/25 Range/Units 04:31 WBC 10.26 H (4.50-10.00) 10*3/uL RBC 2.93 L (4.10-5.20) 10*6/uL Hgb 9.4 L (12.0-15.0) g/dL Hct 26.2 L (37.2-46.3) % MCH 32.1 H (27.0-32.0) pg
[2025-02-10 00:38] VITALS: RESP 17
[2025-02-10 08:14] VITALS: BP 120/79; PULSE 86; TEMP 98
--- NOTE | 2025-02-10 09:45 | P.DS ---
Providers Date of admission: 02/07/25 Attending physician: Dina Howard Consults: 02/07/25 13:41 Consult Physician Routine Consulting Provider: Gosia Perez Consult Reason/Comments: Medical management Do you want consulting provider notified?: Yes [facility] Course: The patient presented on the day of admission as per their operative note. She is doing very good postoperatively. She has been mobile and ambulatory in the hallway. She is passing gas well and tolerating her diet nicely. She feels her legs are doing well there is still some numbness around her left thigh she feels her legs are getting better. She denies any fever or chills. Physical Exam The incision site is clean dry and intact. There is no erythema no drainage. There is no purulence no evidence of infection. He waterproof dressings intact Abdomen soft and nontender. Chest has good excursion with deep inspiration and expiration. The patient has active and passive range of motion intact at the upper and lower extremities. There is no acute change in neurologic status. She has sustained dorsiflexion plantarflexion EHL intact Hospital Course Postoperative day #3 status post open decompression and fusion L1 degenerative scoliosis with spinal stenosis and lower extremity colopathy with neurogenic claudication He is quite mobile and here in the hospital. She is quite content with her pain control. She has some soreness around her back as expected but is being controlled adequately with oral the patient has been making good progress postoperatively. They have completed the prophylactic antibiotics without any signs or symptoms of infection. The patient has been able to advance their diet, and is tolerating diet adequately. The pain was initially controlled with IV medications and is now controlled appropriately with oral medications. The patient has been able to increase their mobilization. The patient has progressed appropriately. I think they are in good stable condition for discharge today. They will be sent home with appropriate prescriptions. I answered their questions to the best of my ability in a language that they can understand and they are agreeable with the plan. They will follow up as directed in approximately 2 weeks or sooner if she is having problem. Patient Condition at Discharge: Good Plan - Discharge Summary Discharge Rx Participant: Yes New Discharge Prescriptions: New Baclofen 10 mg PO TID PRN #60 tab PRN Reason: Spasms traMADol HCl [Ultram] 50 mg PO Q6H PRN #28 tab PRN Reason: Pain No Action Cholecalciferol [Vitamin D3 (25 Mcg = 1000 Iu)] 25 mcg PO DAILY Multivitamin/Iron/Folic Acid [Centrum Women Tablet] 1 each PO DAILY Metoprolol Succinate (ER) [Toprol Xl] 12.5 mg PO QAM Isosorbide Mononitrate [Isosorbide Mononitrate ER] 30 mg PO QAM Atorvastatin [Lipitor] 20 mg PO QAM Tolterodine Tartrate [Tolterodine Tartrate ER] 4 mg PO DAILY Pantoprazole [Protonix] 40 mg PO QAM Levothyroxine Sodium [Synthroid] 100 mcg PO QAM [place]-3/Dha/Epa/Fish Oil [Fish Oil 1,000 mg Softgel] 2 each PO DAILY Elderberry Fruit [Elderberry] 350 mg PO DAILY Calcium Carbonate [Calcium] 600 mg PO DAILY Discharge Medication List Cholecalciferol [Vitamin D3 (25 Mcg = 1000 Iu)] 25 mcg PO DAILY 10/29/22 [History] Levothyroxine Sodium [Synthroid] 100 mcg PO QAM 10/29/22 [History] [place]-3/Dha/Epa/Fish Oil [Fish Oil 1,000 mg Softgel] 2 each PO DAILY 10/29/22 [History] Pantoprazole [Protonix] 40 mg PO QAM 10/29/22 [History] Atorvastatin [Lipitor] 20 mg PO QAM 08/27/23 [History] Isosorbide Mononitrate [Isosorbide Mononitrate ER] 30 mg PO QAM 08/27/23 [History] Metoprolol Succinate (ER) [Toprol Xl] 12.5 mg PO QAM 08/27/23 [History] Multivitamin/Iron/Folic Acid [Centrum Women Tablet] 1 each PO DAILY 08/27/23 [History] Calcium Carbonate [Calcium] 600 mg PO DAILY 02/06/25 [History] Elderberry Fruit [Elderberry] 350 mg PO DAILY 02/06/25 [History] Tolterodine Tartrate [Tolterodine Tartrate ER] 4 mg PO DAILY 02/06/25 [History] Baclofen 10 mg PO TID PRN #60 tab 02/09/25 [Rx] traMADol HCl [Ultram] 50 mg PO Q6H PRN #28 tab 02/09/25 [Rx] Follow up Appointment(s)/Referral(s): Dina Howard DO [Doctor of Osteopathic Medicine] - 02/20/25 10:00 am Activity/Diet/Wound Care/Special Instructions: 1. Patient may shower with Optifoam dressing intact. 2. Patient may remove Optifoam dressing in 3 days and shower without a dressing at that time. 3. Patient should refrain from driving until at least after their first follow- up appointment in the office. 4. Patient should avoid excessive bending, twisting, lifting; avoid overhead lifting; no lifting greater than 10 pounds 5. Patient may utilize walker to aid in ambulation as needed 6. Take medications as prescribed 7. Patient should avoid anti-inflammatory medications over the next 6 weeks postoperatively 8. Do not soak in tub Discharge Disposition: HOME SELF-CARE
== END 2025-02-10 12:40 | disposition home or self-care (01) ==
LOC: OR 05:38 → EDSTATUS 07:30 → 4SSUR 13:43 → OR 02-10 12:40
PROVIDERS: ATTEND Orthopaedic Surgery Orthopaedic Surgery of the Spine
DX: M48.062 Spinal stenosis, lumbar region with neurogenic claudication (principal); M47.817 Spondylosis without myelopathy or radiculopathy, lumbosacral region; M47.26 Other spondylosis with radiculopathy, lumbar region; M43.16 Spondylolisthesis, lumbar region; M51.17 Intervertebral disc disorders with radiculopathy, lumbosacral region; M41.86 Other forms of scoliosis, lumbar region; I10 Essential (primary) hypertension; E78.5 Hyperlipidemia, unspecified; E03.9 Hypothyroidism, unspecified; K21.9 Gastro-esophageal reflux disease without esophagitis; Z90.89 Acquired absence of other organs; Z90.49 Acquired absence of other specified parts of digestive tract; Z87.891 Personal history of nicotine dependence; Z80.0 Family history of malignant neoplasm of digestive organs; Z88.5 Allergy status to narcotic agent; Z91.040 Latex allergy status; Z79.890 Hormone replacement therapy; Z79.899 Other long term (current) drug therapy
CPT/HCPCS: 97161; 97166; 86891; 80048; 85025; 72100; 22633; 22634; 63052; 63053; 22853; 22842; 20930; 20936; P9022; C1713; J0690 ×3; J2405; J1171; J0665